=== PATIENT | female | born 1950 | race Caucasian/White ===

== ENCOUNTER 2020-05-01 10:05 | Outpatient (REF) | payer MEDICARE, BC, OTHER, SELFPAY ==
[2020-05-01 11:13] LABS: MANUAL DIFF FLAG NO
[2020-05-01 11:25] LABS: Basophils Absolute Auto 0.1 X10*3/uL (0.0-0.2); Basophils Percent Auto 1.2 % (0-2); Eosinophils Absolute Auto 0.2 X10*3/uL (0.0-0.4); Eosinophils Percent Auto 4.7 % (0-4); Hematocrit 42.5 % (37-47); Hemoglobin 13.8 g/dl (12.0-16.0); Imm Gran Abs Auto 0.01 X10*3/uL (0.00-0.03); Imm Gran Pct Auto 0.2 % (0.0-0.4); Lymphocytes Absolute Auto 1.3 X10*3/uL (1.2-4.9); Lymphocytes Percent Auto 29.5 % (20-40); Mean Corpuscular HGB Conc 32.5 g/dl (31.0-35.0); Mean Corpuscular Volume 92.4 fL (80-98); Mean Platelet Volume 10.8 fL (9.4-12.3); Monocytes Absolute Auto 0.3 X10*3/uL (0.1-1.2); Monocytes Percent Auto 7.7 % (2-11); Neutrophils Absolute Auto 2.4 X10*3/uL (2.0-8.3); Neutrophils Percent Auto 56.7 % (45-73); Platelet Count 274 X10*3/uL (160-400); Red Cell Distribution Width 13.1 % (11.0-16.0); White Blood Count 4.3 X10*3/uL (4.8-10.8)
[2020-05-01 11:35] LABS: Glucose Urine UA NEG (NEG); Leukocyte Esterase Urine NEG (NEG); Nitrite Urine NEG (NEG); Urine Blood TRACE (NEG); Urine Ketones 5 MG/DL (NEG); Urine Protein NEG (NEG-TRACE)
[2020-05-01 11:47] LABS: Appearance Urine HAZY; Color Urine YELLOW
[2020-05-01 11:59] LABS: Bacteria Urine TRACE /LPF; RBC Urine 0-2 /HPF (0); Squamous Epithelial Cell Urine 1+ /LPF; WBC Urine 0 /HPF (0-4)
[2020-05-01 12:16] LABS: Thyroid Stimulating Hormone 2.43 uIU/mL (0.32-4.0); Vitamin D 25-OH Total 38.2 ng/mL (>30)
[2020-05-01 12:20] LABS: Alanine Aminotransferase 17 U/L (0-31); Albumin Level 4.4 g/dL (3.5-5.0); Alkaline Phosphatase 72 U/L (39-117); Anion Gap 15 (12-20); Aspartate Amino Transferase 20 U/L (5-31); Bilirubin Total 0.8 mg/dL (0.0-1.0); Blood Urea Nitrogen 15 mg/dL (9-16); Calcium 9.3 mg/dL (8.4-10.2); Carbon Dioxide 25 mmol/L (22-29); Chloride 105 mmol/L (96-108); Cholesterol 256 mg/dL; Estimated Glomerular Filt Rate > 60; Glucose Random 96 mg/dL (60-115); HDL Cholesterol 80 mg/dL; LDL Cholesterol Calculated 163 mg/dl; Potassium 4.2 mmol/L (3.3-5.1); Sodium 141 mmol/L (135-145); Total Protein 7.2 g/dL (6.5-8.0); Triglycerides 68 mg/dL
[2020-05-01 12:26] LABS: Folate 19.9 ng/mL (> or = 4.0); Vitamin B12 1000 pg/mL (200-900)
== END 2020-05-01 10:06 | disposition home or self-care (01) ==
LOC: HO.HMGCLDS 10:05
PROVIDERS: PCP Internal Medicine; Visit Provider Internal Medicine
DX: E78.00 Pure hypercholesterolemia, unspecified (principal); E03.9 Hypothyroidism, unspecified; M17.0 Bilateral primary osteoarthritis of knee
CPT/HCPCS: 36415; 80053; 80061; 81001; 82306; 82607; 82746; 84439; 84443; 85025

== ENCOUNTER 2020-09-07 12:15 | Outpatient (REF) | payer MEDICARE, BC, OTHER, SELFPAY ==
[2020-09-07 14:00] LABS: MANUAL DIFF FLAG NO
[2020-09-07 14:07] LABS: Basophils Percent Auto 0.9 % (0-2); Eosinophils Absolute Auto 0.2 X10*3/uL (0.0-0.4); Eosinophils Percent Auto 3.8 % (0-4); Glucose Urine UA NEG (NEG); Hemoglobin 13.5 g/dl (12.0-16.0); Imm Gran Abs Auto 0.02 X10*3/uL (0.00-0.03); Imm Gran Pct Auto 0.4 % (0.0-0.4); Leukocyte Esterase Urine NEG (NEG); Lymphocytes Percent Auto 22.2 % (20-40); Mean Corpuscular HGB Conc 32.9 g/dl (31.0-35.0); Mean Corpuscular Hemoglobin 30.2 pg (27.0-33.0); Mean Corpuscular Volume 91.7 fL (80-98); Mean Platelet Volume 10.6 fL (9.4-12.3); Monocytes Absolute Auto 0.3 X10*3/uL (0.1-1.2); Monocytes Percent Auto 7.4 % (2-11); Neutrophils Absolute Auto 2.9 X10*3/uL (2.0-8.3); Neutrophils Percent Auto 65.3 % (45-73); Nitrite Urine NEG (NEG); PH 5.5 (5.0-8.0); Platelet Count 276 X10*3/uL (160-400); Red Blood Count 4.47 X10*6/uL (4.20-5.50); Red Cell Distribution Width 13.3 % (11.0-16.0); Specific Gravity - Urine >= 1.030 (1.005-1.025); Urine Blood NEG (NEG); Urine Ketones NEG (NEG); Urine Protein NEG (NEG-TRACE); White Blood Count 4.5 X10*3/uL (4.8-10.8)
[2020-09-07 14:11] LABS: Appearance Urine CLOUDY; Color Urine YELLOW
[2020-09-07 14:22] LABS: Mucus Urine 3+ /LPF; RBC Urine 0 /HPF (0); Squamous Epithelial Cell Urine 1+ /LPF; WBC Urine 0 /HPF (0-4)
[2020-09-07 14:25] LABS: Amorphous Sediment Urine 2+ /LPF
[2020-09-07 14:31] LABS: Alanine Aminotransferase 16 U/L (0-31); Albumin Level 4.3 g/dL (3.5-5.0); Alkaline Phosphatase 72 U/L (39-117); Anion Gap 11 (12-20); Aspartate Amino Transferase 20 U/L (5-31); Bilirubin Total 0.7 mg/dL (0.0-1.0); Blood Urea Nitrogen 17 mg/dL (9-16); Calcium 9.7 mg/dL (8.4-10.2); Carbon Dioxide 26 mmol/L (22-29); Chloride 108 mmol/L (96-108); Cholesterol 209 mg/dL; Estimated Glomerular Filt Rate > 60; Glucose Random 90 mg/dL (60-115); HDL Cholesterol 75 mg/dL; LDL Cholesterol Calculated 121 mg/dl; Potassium 4.4 mmol/L (3.3-5.1); Sodium 141 mmol/L (135-145); Triglycerides 67 mg/dL
[2020-09-07 14:33] LABS: B Type Natriuretic Peptide 55 pg/mL (<100)
[2020-09-07 14:53] LABS: Free T4 (Free Thyroxine) 1.38 ng/dL (0.71-1.85); Thyroid Stimulating Hormone 0.57 uIU/mL (0.32-4.0); Vitamin D 25-OH Total 33.1 ng/mL (>30)
[2020-09-07 16:16] LABS: Folate 18.6 ng/mL (> or = 4.0); Vitamin B12 640 pg/mL (200-900)
[2020-09-08 08:52] LABS: Lyme Abs Screen <0.90 index
== END 2020-09-07 12:16 | disposition home or self-care (01) ==
LOC: HO.HMGCLDS 12:15
PROVIDERS: PCP Internal Medicine; Visit Provider Internal Medicine
DX: E78.00 Pure hypercholesterolemia, unspecified (principal); T14.8XXA Other injury of unspecified body region, initial encounter; W57.XXXA Bitten or stung by nonvenomous insect and other nonvenomous arthropods, initial encounter
CPT/HCPCS: 36415; 80053; 80061; 81001; 82306; 82607; 82746; 83880; 84439; 84443; 85025; 86617; 86618

== ENCOUNTER 2021-07-17 16:44 | Outpatient (REF) | payer MEDICARE, BC, OTHER, SELFPAY ==
[2021-07-17 17:27] LABS: Appearance Urine CLEAR; Color Urine YELLOW; Glucose Urine UA NEG (NEG); Leukocyte Esterase Urine NEG (NEG); Nitrite Urine NEG (NEG); PH 5.5 (5.0-8.0); Specific Gravity - Urine >= 1.030 (1.005-1.025); Urine Blood TRACE (NEG); Urine Ketones NEG (NEG); Urine Protein NEG (NEG-TRACE)
[2021-07-17 17:37] LABS: Estimated Average Glucose 100 mg/dL; Hemoglobin A1c % 5.1 %
[2021-07-17 17:44] LABS: Alanine Aminotransferase 24 U/L (0-31); Albumin Level 4.3 g/dL (3.5-5.0); Alkaline Phosphatase 71 U/L (39-117); Anion Gap 11 (12-20); Aspartate Amino Transferase 22 U/L (5-31); Bilirubin Total 0.8 mg/dL (0.0-1.0); Blood Urea Nitrogen 19 mg/dL (9-16); Calcium 9.5 mg/dL (8.4-10.2); Carbon Dioxide 28 mmol/L (22-29); Chloride 105 mmol/L (96-108); Cholesterol 206 mg/dL; Estimated Glomerular Filt Rate > 60; Glucose Random 94 mg/dL (60-115); HDL Cholesterol 84 mg/dL; LDL Cholesterol Calculated 110 mg/dl; Potassium 4.3 mmol/L (3.3-5.1); Sodium 140 mmol/L (135-145); Total Protein 7.1 g/dL (6.5-8.0); Triglycerides 63 mg/dL
[2021-07-17 17:45] LABS: Bacteria Urine 1+ /LPF; Mucus Urine 1+ /LPF; RBC Urine 0-2 /HPF (0); Squamous Epithelial Cell Urine 2+ /LPF
[2021-07-17 18:04] LABS: Free T4 (Free Thyroxine) 1.53 ng/dL (0.71-1.85); Thyroid Stimulating Hormone 1.77 uIU/mL (0.32-4.0)
== END 2021-07-17 16:45 | disposition home or self-care (01) ==
LOC: HO.LAB 16:44
PROVIDERS: PCP Internal Medicine; Visit Provider Internal Medicine
DX: E03.9 Hypothyroidism, unspecified (principal); E78.00 Pure hypercholesterolemia, unspecified; M17.0 Bilateral primary osteoarthritis of knee
CPT/HCPCS: 36415; 80053; 80061; 81001; 83036; 84439; 84443

== ENCOUNTER 2021-07-18 15:28 | Outpatient (REF) | payer MEDICARE, BC, OTHER, SELFPAY ==
--- NOTE | ~2021-07-18 | XR_ITS ---
EXAMINATION: XR KNEE, RIGHT CLINICAL INFORMATION: Right knee pain COMPARISON: None TECHNIQUE: Two views of the right knee. FINDINGS: No fracture or subluxation. Moderate to severe lateral compartment joint space narrowing. Mild patellofemoral compartment narrowing. Tricompartmental marginal osteophytes. No significant joint effusion. Diffuse soft tissue swelling. XR/XR knee RT 2V IMPRESSION: Moderate tricompartmental degenerative changes.
--- NOTE | ~2021-07-18 | XR_ITS ---
EXAMINATION: XR SHOULDER, RIGHT CLINICAL INFORMATION: Pain. Fall. COMPARISON: None TECHNIQUE: Three views of the right shoulder. FINDINGS: No acute fracture or dislocation. The glenohumeral joint is aligned. Severe degenerative change with joint space narrowing. There is flattening of the humeral head and glenoid with [id number] appearance. Subchondral sclerosis present. The acromioclavicular joint is intact. The visualized lung is clear. The visualized ribs are intact. XR/XR shoulder RT min 2V IMPRESSION: No acute fracture. Severe degenerative changes of the glenohumeral joint.
== END 2021-07-18 15:29 | disposition home or self-care (01) ==
LOC: HO.HMGCX 15:28
PROVIDERS: PCP Internal Medicine; Visit Provider Internal Medicine
DX: M25.561 Pain in right knee (principal); M25.511 Pain in right shoulder
CPT/HCPCS: 73030; 73560

== ENCOUNTER 2022-01-02 17:03 | Outpatient (REF) | payer MEDICARE, BC, OTHER, SELFPAY ==
[2022-01-02 17:24] LABS: MANUAL DIFF FLAG NO
[2022-01-02 17:52] LABS: Appearance Urine Clear; Color Urine Yellow; Glucose Urine UA Negative (Negative); Leukocyte Esterase Urine Trace (Negative); Nitrite Urine Negative (Negative); PH 7.5 (5.0-9.0); Specific Gravity - Urine 1.015 (1.005-1.025); UMIC TRIGGER UA YES; Urine Blood Negative (Negative); Urine Ketones Negative (Negative); Urine Protein Negative (Neg-Trace)
[2022-01-02 17:55] LABS: Bacteria Urine Trace (None Seen); Hyaline Casts Urine 0-2 /LPF (0-2); WBC Urine 0-5 /HPF (0-5)
[2022-01-02 17:56] LABS: Basophils Percent Auto 1.2 % (0-2); Eosinophils Absolute Auto 0.2 X10*3/uL (0.0-0.4); Eosinophils Percent Auto 4.8 % (0-4); Hematocrit 41.7 % (37.0-47.0); Hemoglobin 13.9 g/dl (12.0-16.0); Imm Gran Abs Auto 0.01 X10*3/uL (0.00-0.03); Imm Gran Pct Auto 0.3 % (0.0-0.4); Lymphocytes Absolute Auto 1.1 X10*3/uL (1.2-4.9); Lymphocytes Percent Auto 33.4 % (20-40); Mean Corpuscular HGB Conc 33.3 g/dl (31.0-35.0); Mean Corpuscular Hemoglobin 30.3 pg (27.0-33.0); Monocytes Absolute Auto 0.2 X10*3/uL (0.1-1.2); Monocytes Percent Auto 7.2 % (2-11); Neutrophils Absolute Auto 1.8 x10*3/uL (2.0-8.3); Neutrophils Percent Auto 53.1 % (45-73); Platelet Count 297 X10*3/uL (160-400); Red Blood Count 4.58 X10*6/uL (4.20-5.50); White Blood Count 3.3 X10*3/uL (4.8-10.8)
[2022-01-02 18:34] LABS: Alanine Aminotransferase 30 U/L (0-31); Albumin Level 4.5 g/dL (3.5-5.0); Alkaline Phosphatase 86 U/L (39-117); Anion Gap 15 (12-20); Aspartate Amino Transferase 26 U/L (5-31); Bilirubin Total 0.8 mg/dL (0.0-1.0); Blood Urea Nitrogen 16 mg/dL (9-16); Calcium 9.6 mg/dL (8.4-10.2); Carbon Dioxide 27 mmol/L (22-29); Chloride 105 mmol/L (96-108); Cholesterol 225 mg/dL; Estimated Glomerular Filt Rate > 60; Glucose Random 107 mg/dL (60-115); HDL Cholesterol 82 mg/dL; LDL Cholesterol Calculated 129 mg/dl; Potassium 4.5 mmol/L (3.3-5.1); Sodium 142 mmol/L (135-145); Total Protein 7.3 g/dL (6.5-8.0); Triglycerides 73 mg/dL
[2022-01-02 18:53] LABS: Free T4 (Free Thyroxine) 1.32 ng/dL (0.71-1.85); Thyroid Stimulating Hormone 3.14 uIU/mL (0.32-4.0); Vitamin D 25-OH Total 44.3 ng/mL (>30)
[2022-01-02 19:02] LABS: Folate 19.4 ng/mL (> or = 4.0); Vitamin B12 440 pg/mL (200-900)
[2022-01-03 08:01] LABS: Estimated Average Glucose 97 mg/dL
== END 2022-01-02 17:04 | disposition home or self-care (01) ==
LOC: HO.LAB 17:03
PROVIDERS: PCP Internal Medicine; Visit Provider Internal Medicine
DX: E03.9 Hypothyroidism, unspecified (principal); E66.9 Obesity, unspecified; E78.00 Pure hypercholesterolemia, unspecified
CPT/HCPCS: 36415; 80053; 80061; 81001; 82306; 82607; 82746; 83036; 84439; 84443; 85025

== ENCOUNTER 2022-02-11 17:00 | Outpatient (RCR) | payer MEDICARE, BC, OTHER, SELFPAY | END 2022-04-15 15:42 | disposition home or self-care (01) | LOC: HO.PTCHIC 17:00 | PROVIDERS: PCP Internal Medicine; Visit Provider Orthopaedic Surgery | DX: M17.0 Bilateral primary osteoarthritis of knee (principal) | CPT/HCPCS: 97110; 97116; 97161 ==

== ENCOUNTER 2022-02-27 15:25 | Outpatient (REF) | payer MEDICARE, BC, OTHER, SELFPAY ==
--- NOTE | ~2022-02-27 | US_ITS ---
EXAMINATION: Noninvasive assessment of the arteries of both lower extremities to include a limited PVR exam (1-2 levels) and ANKLE BRACHIAL INDICES (ABIs). CLINICAL INFORMATION: Peripheral vascular disease TECHNIQUE: The ankle/brachial indices of the distal posterior tibial and the dorsalis pedis arteries were obtained of the lower extremity arterial system bilaterally; along with pressures and pulse volume recordings at the ankle level. The study was performed at rest. COMPARISON: None FINDINGS AT REST: EVANGELISTA Reference: - >1.4 = calcified vessels - 0.9 - 1.4 = normal - no significant arterial disease - 0.7 - 0.89 = mild peripheral arterial disease - 0.51 - 0.69 = moderate peripheral arterial disease - ? 0.50 = severe peripheral arterial disease - < .30 = critical arterial disease RIGHT LEG 1. THE RIGHT ANKLE-BRACHIAL INDEX IS:?0.91 2. SEGMENTAL PRESSURES (mmHg): Ankle: DP 137 3. PVR WAVEFORMS: Ankle: Abnormal LEFT LE. THE LEFT ANKLE-BRACHIAL INDEX IS:0.91 2. SEGMENTAL PRESSURES (mmHg): Ankle: DP 138, PT 81 3. PVR WAVEFORMS: Ankle: Abnormal US/US EVANGELISTA complete IMPRESSION: RIGHT LEG: Mild peripheral arterial disease at rest. LEFT LEG: Mild peripheral arterial disease at rest.
== END 2022-02-27 15:26 | disposition home or self-care (01) ==
LOC: HO.US 15:25
PROVIDERS: Visit Provider Internal Medicine
DX: I73.9 Peripheral vascular disease, unspecified (principal)
CPT/HCPCS: 93923

== ENCOUNTER 2022-08-25 16:48 | Outpatient (REF) | payer MEDICARE, BC, OTHER, SELFPAY ==
[2022-08-25 17:14] LABS: MANUAL DIFF FLAG NO
[2022-08-25 17:41] LABS: Basophils Percent Auto 1.2 % (0-2); Eosinophils Absolute Auto 0.2 X10*3/uL (0.0-0.4); Eosinophils Percent Auto 5.3 % (0-4); Hematocrit 41.8 % (37.0-47.0); Hemoglobin 13.9 g/dl (12.0-16.0); Imm Gran Abs Auto 0.01 X10*3/uL (0.00-0.03); Imm Gran Pct Auto 0.3 % (0.0-0.4); Lymphocytes Absolute Auto 1.1 X10*3/uL (1.2-4.9); Mean Corpuscular HGB Conc 33.3 g/dl (31.0-35.0); Mean Corpuscular Hemoglobin 30.5 pg (27.0-33.0); Mean Corpuscular Volume 91.7 fL (80.0-98.0); Monocytes Absolute Auto 0.3 X10*3/uL (0.1-1.2); Monocytes Percent Auto 8.1 % (2-11); Neutrophils Absolute Auto 1.6 x10*3/uL (2.0-8.3); Neutrophils Percent Auto 51.1 % (45-73); Platelet Count 261 X10*3/uL (160-400); Red Blood Count 4.56 X10*6/uL (4.20-5.50); Red Cell Distribution Width 13.5 % (11.0-16.0); White Blood Count 3.2 X10*3/uL (4.8-10.8)
[2022-08-25 18:11] LABS: Alanine Aminotransferase 27 U/L (0-31); Albumin Level 4.3 g/dL (3.5-5.0); Alkaline Phosphatase 82 U/L (39-117); Anion Gap 15 (12-20); Aspartate Amino Transferase 25 U/L (5-31); Bilirubin Total 0.8 mg/dL (0.0-1.0); Blood Urea Nitrogen 14 mg/dL (9-16); Calcium 9.7 mg/dL (8.4-10.2); Carbon Dioxide 26 mmol/L (22-29); Chloride 108 mmol/L (96-108); Cholesterol 251 mg/dL; Estimated Glomerular Filt Rate > 60; Glucose Random 94 mg/dL (60-115); HDL Cholesterol 73 mg/dL; LDL Cholesterol Calculated 163 mg/dl; Potassium 4.5 mmol/L (3.3-5.1); Sodium 144 mmol/L (135-145); Total Protein 6.9 g/dL (6.5-8.0); Triglycerides 75 mg/dL
[2022-08-25 18:27] LABS: Free T4 (Free Thyroxine) 1.19 ng/dL (0.71-1.85); Thyroid Stimulating Hormone 2.72 uIU/mL (0.32-4.0)
[2022-08-26 05:11] LABS: Estimated Average Glucose 91 mg/dL; Hemoglobin A1c % 4.8 %
== END 2022-08-25 16:49 | disposition home or self-care (01) ==
LOC: HO.LAB 16:48
PROVIDERS: Visit Provider Internal Medicine
DX: E78.00 Pure hypercholesterolemia, unspecified (principal); E03.9 Hypothyroidism, unspecified; R73.01 Impaired fasting glucose
CPT/HCPCS: 36415; 80053; 80061; 83036; 84439; 84443; 85025

== ENCOUNTER 2022-10-09 14:10 | Outpatient (AMB) | payer MEDICARE, BC, OTHER, SELFPAY ==
--- NOTE | 2022-10-09 11:14 | A.OFFVIS_ITS ---
Intake Intake Visit Reasons: MANAGER ZONE-urge incontinence Intake Note: New Patient presents for urge incontinence Urology Medications: solifenacin Blood Thinner: aspirin PVR: 67 ml Ship Pilot Dispatcher Required: No Accompanied by: Self / Same As Patient Allergies No Known Allergies Allergy (Verified 10/09/22 14:33) HPI HPI Comments History of Present Illness Details 10/19/2022-- Della is a 72-year-old female who presents today to the office as a new patient evaluation for urinary incontinence. Comorbidities: obesity, osteoarthritis.? She states that she needs to use a cane or walker to get around due to her arthritis. She states that she has been on VESIcare 5mg for few years, states that was initially showed mild improvement, had less urgency. Her urinary symptoms have been worsening at this time. She describes being soaked due to urinary leakage, and has to change multiple pads. She denies any prior urinary tract infections. She had 5 vaginal deliveries.? She had total hysterectomy in the past.? Evaluation today UA: leucocytes: negative; blood: negative. Plan:? Prescribed Gemtesa 75mg daily, and advised the patient to discontinue taking VESIcare while taking Gemtesa. Ordered renal us today in the office. Follow up to consider Cystoscopy at that time. [facility] Medical History Eczema Hematuria Hypercholesterolemia Hypothyroid Obesity (BMI 30-39.9) Osteoarthritis, knee Right shoulder pain Thyroid nodule Tick bite Urinary incontinence Surgical History History of thyroid nodule History of tonsillectomy and adenoidectomy S/P PARTH-BSO (total abdominal hysterectomy and bilateral salpingo-oophorectomy) Family History Father CAD (coronary artery disease) Lung cancer CVD (cardiovascular disease) Mother Pancreatic cancer Colon cancer Maternal Grandmother Leukemia Maternal Grandfather Pancreatic cancer Paternal Grandfather Throat cancer Social History Housing: House Alcohol intake: never Patient Tobacco Use Status: Never used Tobacco e-Cigarette/Vaping Use: Never Used Second Hand Smoke Exposure: No Current occupational status: retired Cognitive needs: No Hearing needs: No Vision needs: No Review of Systems Const All systems reviewed & are unremarkable except as noted in HPI and below Reports no additional complaints Eyes Reports no additional complaints ENT Reports no additional complaints Card Denies dyspnea Resp Denies cough and Denies dyspnea GI Reports no additional complaints Reports no additional complaints Musc Reports no additional complaints Skin/Breast Denies rash and Denies unusual bruising Neuro Reports no additional complaints Psych Reports no additional complaints Endo Reports no additional complaints Landon/Lymph Reports no additional complaints Aller/Immun Reports no additional complaints Physical Exam Const General: cooperative, healthy appearing and no acute distress Orientation/consciousness: patient oriented x3 HEENT Head: Yes normal to inspection, Yes normocephalic and Yes atraumatic Eyes Conjunctivae: conjunctivae normal Neck Neck: Yes normal visual inspection and Yes trachea midline Chest Chest palpation & inspection: normal inspection of the chest Resp Effort & Inspection: normal respiratory effort Cardio Rate: regular rate GI Inspection: Yes normal to inspection Palpation (GI): Soft to palpation Skin General skin exam: no rashes or lesions noted Neuro General: patient oriented x3 Extrem General: No edema Psych Appearance: grossly normal Office Procedures Post Void Residual Post Residual Void Post Void Residual (PVR): 67 [id number] Void Residual by ultrasound Results AMB Urinalysis, Automated UA Leukoctes 0 Iga/uL Last Edit by MICHAEL Saldaña on 10/09/22 14:40 UA Nitrite Negative Last Edit by Keri Kauffman Elena on 10/09/22 14:40 UA Urobilinogen 0.2 mg/dL Last Edit by Keri Kauffman Elena on 10/09/22 14:4 0 UA Protein 0 mg/dL Last Edit by Keri Kauffman [facility] on 10/09/22 14:40 UA pH 6.0 Last Edit by MICHAEL Saldaña on 10/09/22 14:40 UA Blood 0 Rey/uL Last Edit by Keri Kauffman Elena on 10/09/22 14:40 UA Specific [place] 1.015 Last Edit by MICHAEL Saldaña on 10/09/22 14: 40 UA Ketone Negative Last Edit by Keri Kauffman Elena on 10/09/22 14:40 UA Bilirubin 0 mg/dL Last Edit by MICHAEL Saldaña on 10/09/22 14:40 UA Glucose 0 mg/dL Last Edit by MICHEAL Saldaña on 10/09/22 14:40 Results Reviewed Results Reviewed: Laboratory Last Values Urine pH (Auto) 6.0 10/09/22 14:34 Specific [place] (Auto) 1.015 10/09/22 14:34 Urine Protein (Auto) 0 mg/dL 10/09/22 14:34 Glucose (UA)(Auto) 0 mg/dL 10/09/22 14:34 Urine Ketones (Auto) Negative 10/09/22 14:34 Urine Blood (Auto) 0 Rey/uL 10/09/22 14:34 Urine Nitrite (Auto) Negative 10/09/22 14:34 Urine Bilirubin (Auto) 0 mg/dL 10/09/22 14:34 Urine Urobilinogen (Auto) 0.2 mg/dL 10/09/22 14:34 Leukocyte Esterase (Auto) 0 Gia/uL 10/09/22 14:34 Assessment & Plan Assessment & Plan (1) OAB (overactive bladder): Code(s): N32.81 - Overactive bladder (2) Urge incontinence: Code(s): N39.41 - Urge incontinence Plan Prescribed Gemtesa 75mg daily, and advised the patient to discontinue taking VESIcare while taking Gemtesa. Ordered renal us today in the office. Follow up to consider Cystoscopy at that time. Orders: Orders AMB Urinalysis Automated 10/09/22 Z13.9 - Encounter for screening, unspecified AMB Post Void Residual by ultrasound 10/09/22 N39.41 - Urge incontinence Medications: New vibegron (Gemtesa) 75 mg PO DAILY 90 tabs 2RF Patient Instructions: The patient had an opportunity to ask questions regarding treatment plan. All questions were answered. Imaging, Laboratory studies and physical exam results were discussed and reviewed in detail. No major barriers to understanding were identified. The patient expressed understanding and agreement with the above treatment plan. The patient is aware they should contact our office by phone for worsening of their current condition or the appearance of new symptoms. Compliance is encouraged with any medications and followup testing that is ordered. It is a privilege to be allowed the opportunity to participate in the urologic care of your patient. If you have any questions or concerns regarding treatment for the above conditions please do not hesitate to contact me. The office telephone contact is [phone]. This note is constructed in part using voice recognition software. While every effort has been made to ensure accuracy advertising account manager errors may have been included. Yours sincerely, Son Mayer MD Coding Level of Care Code New Pt Level 4 (65083) Diagnoses OAB (overactive bladder) N32.81 Urge incontinence N39.41 CPT Codes Post Residual Void - PVR CPT Code: 29297-[id number] Void Residual by ultrasound ([id number])
== END 2022-10-09 15:07 | disposition home or self-care (01) ==
PROVIDERS: PCP Internal Medicine; Visit Provider Urology
DX: N32.81 Overactive bladder (principal); N39.41 Urge incontinence
CPT/HCPCS: 99204

== ENCOUNTER → 2022-10-09 14:10 | Outpatient (BNVA) | payer MEDICARE, BC, OTHER, SELFPAY | PROVIDERS: PCP Internal Medicine; Visit Provider Urology | DX: N32.81 Overactive bladder (principal); N39.41 Urge incontinence | CPT/HCPCS: 51798; 99202 ==

== ENCOUNTER 2023-08-12 15:46 | Outpatient (REF) | payer MEDICARE, BC, SELFPAY ==
--- NOTE | ~2023-08-12 | US_ITS ---
EXAMINATION: US RETROPERITONEAL COMPLETE (RENAL) CLINICAL INFORMATION: Overactive bladder. COMPARISON: None available. TECHNIQUE: Real-time imaging of the kidneys and bladder. Technically limited study secondary to bowel gas, body habitus and limited mobility. FINDINGS: RIGHT KIDNEY: 10.0 x 4.7 x 3.6 cm (SAG x AP x TRV). No hydronephrosis. No renal calculi. Renal cortical thickness is normal. Limited visualization with particularly poor visualization of the lower pole. LEFT KIDNEY: 10.1 x 5.3 x 4.8 cm (SAG x AP x TRV). Renal cortical thickness is normal. Limited visualization. Mild left caliectasis. Echogenic focus lower pole left kidney, possibly representing a calcified vessel versus nonobstructive calculus. BLADDER: Partially distended. Bilateral ureteral jets are demonstrated. Prevoid bladder volume is 439 mL. Postvoid bladder volume is 118 mL. US/US retroperitoneal comp IMPRESSION: 1. Mild left caliectasis. Echogenic focus lower pole left kidney, possibly representing a calcified vessel versus nonobstructive calculus. 2. Postvoid bladder volume is 118 mL.
== END 2023-08-12 15:47 | disposition home or self-care (01) ==
LOC: HO.US 15:46
PROVIDERS: PCP Internal Medicine; Visit Provider Urology
DX: N32.81 Overactive bladder (principal); R35.0 Frequency of micturition
CPT/HCPCS: 76770

== ENCOUNTER 2023-08-27 16:07 | Outpatient (AMB) | payer MEDICARE, BC, SELFPAY ==
[2023-08-27 16:13] VITALS: BP 144/72; PULSE 86; O2SAT 98
--- NOTE | 2023-08-27 16:13 | MHC.PC.OV ---
Vital Signs 08/27/23 16:13 08/27/23 16:45 Height 5 ft 8 in BMI Reason not done Patient refused/unable BP 144/72 H 128/74 Blood Pressure Location Lt brachial Rt brachial Position Sitting Sitting Pulse 86 Pulse Source Pulse Oximeter Pulse Oximetry (%) 98 Oxygen Delivery Method Room Air Intake Visit Reasons: Follow up Medication F/U Lead Electrical Engineer Required: No Engineering Recruiter: Not Required per policy Accompanied by: Self / Same As Patient Allergies No Known Allergies Allergy (Verified 08/27/23 16:14) Tobacco use date assessed: 08/27/23 Fall risk assessment: No Falls in past year Last assessed Fall Risk: 08/27/23 Dental Screening Dental Screen Date: 08/27/23 Did you have a dental visit in the last 12 months?: Yes Did you have a dental problem in the last 6 months where you did not have access to dental care?: No Was dental information given to patient?: Patient has dentist HPI Follow up Medication F/U HPI Details 82-year-old obese female with impaired glucose tolerance hypothyroidism hypercholesterolemia generalized anxiety disorder last seen in 09/09/2022. Review of the notes has been sent to urology for urge incontinence on solifenacin with postvoid residual of 67 cc patient was prescribed gemtessa and advised renal ultrasound with cystoscopy. This has not been done. August blood work showing high cholesterol.. US requested- did not use asking me about the med. cough, 4 days, no fevers, no diarrhea, , congested PFSH Medical History Eczema Hematuria Hypercholesterolemia Hypothyroid Obesity (BMI 30-39.9) Osteoarthritis, knee Right shoulder pain Thyroid nodule Tick bite Urinary incontinence Surgical History History of thyroid nodule S/P PARTH-BSO (total abdominal hysterectomy and bilateral salpingo-oophorectomy) History of tonsillectomy and adenoidectomy Family History Father CAD (coronary artery disease) Lung cancer CVD (cardiovascular disease) Mother Pancreatic cancer Colon cancer Maternal Grandmother Leukemia Maternal Grandfather Pancreatic cancer Paternal Grandfather Throat cancer Social History Housing: House Alcohol intake: never Patient Tobacco Use Status: Never used Tobacco e-Cigarette/Vaping Use: Never Used Second Hand Smoke Exposure: No Current occupational status: retired Cognitive needs: Yes (cane) Hearing needs: No Vision needs: Yes (glasses) Questionnaire PHQ-9 Over the last 2 weeks, how often have you been bothered by any of the following problems? 1. Little interest or pleasure in doing things: not at all 2. Feeling down, depressed, or hopeless: not at all 3. Trouble falling or staying asleep, or sleeping too much: not at all 4. Feeling tired or having little energy: not at all 5. Poor appetite or overeating: not at all 6. Feeling bad about yourself - or that you are a failure or have let yourself or your family down: not at all 7. Trouble concentrating on things, such as reading the newspaper or watching television: not at all 8. Moving or speaking so slowly that other people could have noticed. Or the opposite - being so fidgety or restless that you have been moving around a lot more than usual: not at all 9. Thoughts that you would be better off or of hurting yourself in some way: not at all Total score: 0 Depression Screening Interpretation: Negative Depression Screening Done: Yes Source: Developed by Drs. Talat Hernandez, Marilyn Figueroa, Beto Bojorquez and colleagues, with an educational justin from [employer]. Thrive Questionnaire Date Thrive assessed: 08/27/23 I am a: Patient What is your living situation today?: I have a steady place to live Within the past 12 months, did the food you bought not last and you didn't have the money to get more?: Never true Within the past 12 months, did you worry whether your food would run out before you got money to buy more?: Never true Do you have trouble paying for medicines?: No Do you have trouble getting transportation to medical appointments?: No Do you have trouble paying your heating and electricity bill?: No Do you have trouble taking care of your child, family member or friend?: No Do you have trouble with day-to-day activities such as bathing, preparing meals, shopping, managing finances, etc.?: No Are you currently unemployed and looking for a job?: No Are you interested in more education?: No Please select the resources that you would like help with: None THRIVE Score: 0 AUDIT C Alcohol Use Questionnaire (AUDIT-C) 1. How often do you have a drink containing alcohol?: Never 2. How many drinks containing alcohol do you have on a typical day when you are drinking?: 1 or 2 3. How often do you have six or more drinks on one occasion?: Never Total Score: 0 VANNESSA-7 AMB Questionnaire VANNESSA-7 Date VANNESSA - 7 assessed: 08/27/23 Feeling nervous, anxious, or on edge: 0 = Not at all Not being able to stop or control worryin = Not at all Worrying too much about different things: 0 = Not at all Trouble relaxin = Not at all Being so restless that it is hard to sit still: 0 = Not at all Becoming easily annoyed or irritable: 0 = Not at all Feeling afraid as if something awful might happen: 0 = Not at all Total VANNESSA-7 score (0-4 normal; 5-9 mild; 10-14 moderate; 15-21 severe): 0 Source: Developed by Drs. Talat Hernandez, Marilyn Figueroa, Beto Bojorquez and colleagues, with an educational justin from [employer]. Physical exam (Primary Care) Vital Signs: Last Vital Signs Pulse 86 08/27/23 16:13 BP 128/74 08/27/23 16:45 Pulse Ox 98 08/27/23 16:13 Oxygen Delivery Method Room Air 08/27/23 16:13 Tobacco/Smoking Status: Tobacco use Status Tobacco use date assessed 08/27/23 08/27/23 16:15 Patient Tobacco Use Status Never used Tobacco 08/27/23 16:15 e-Cigarette/Vaping Use Never Used 08/27/23 16:15 PHQ-9: PHQ-9 Score PHQ-9: Total score 0 08/27/23 16:44 Depression Screening Interpretation: Negative Thrive Assessment: Date of Thrive Assessment Date Thrive assessed 08/27/23 08/27/23 16:15 Const General: alert; No acute distress Eyes Conjunctivae: conjunctivae normal Resp Other: Rhonchi bilaterally slight wheezing Cardio Rate: regular rate Rhythm: regular rhythm GI Inspection: Yes normal to inspection Extrem General: Yes normal to inspection and No edema Assessment and Plan Assessment & Plan (1) OAB (overactive bladder): Code(s): N32.81 - Overactive bladder Plan: Patient has been seen by Urology last year and has been requested to have an ultrasound done and possible cystoscopy. Ultrasound recently done results pending. Patient has been advised to start ongemtessa (2) Impaired fasting blood sugar: Code(s): R73.01 - Impaired fasting glucose Plan: Decrease the amount of carbohydrate intake, pasta, bread, rice and potatoes are all sugar and that is aside from all the sweet stuff, remember that fruits are good but they are Sweet also. 09/09/2022 last blood work (3) Hypercholesterolemia: Code(s): E78.00 - Pure hypercholesterolemia, unspecified Plan: Avoid fried foods, chicken skin, eggs, butter margarine, pastries and meat. Be it pork or beef they have a lot of cholesterol LDL goal of less than 130 and triglyceride of less than 150 on simvastatin 10 mg once a day question of holding the medication as the numbers went up (4) Obesity (BMI 30-39.9): Code(s): E66.9 - Obesity, unspecified Plan: Diet and exercise (5) Hypothyroid: Comment: Thyroidectomy last just general none cancer Code(s): E03.9 - Hypothyroidism, unspecified Qualifiers: Hypothyroidism type: acquired Qualified Code(s): E03.9 - Hypothyroidism, unspecified Plan: Continue with thyroid medication will need testing (6) Generalized anxiety disorder: Code(s): F41.1 - Generalized anxiety disorder Plan: Stable (7) Acute bronchitis: Code(s): J20.9 - Acute bronchitis, unspecified Plan: Advised to increase oral fluids, test for COVID requested, Mucinex for productive cough, Delsym for dry cough. Antibiotic prescription sent. Orders: Orders Comprehensive Met. Panel Today E03.9 - Hypothyroidism, unspecified Vitamin B12 and Folate Today E03.9 - Hypothyroidism, unspecified Hemoglobin A1c Today E03.9 - Hypothyroidism, unspecified Free T4 (Free Thyroxine) Today E03.9 - Hypothyroidism, unspecified Complete Blood Count Auto Diff Today E03.9 - Hypothyroidism, unspecified Lipid Panel Today E03.9 - Hypothyroidism, unspecified, E78.00 - Pure hypercholesterolemia, unspecified Thyroid Stimulating Hormone Today E03.9 - Hypothyroidism, unspecified SARS-CoV2/FLU/RSV Today J20.9 - Acute bronchitis, unspecified Medications: New azithromycin (Zithromax) For 250 mg dose pack: take 500 mg today (day 1), then 250 mg for 4 days (days 2-5) PO 6 tabs 0RF J20.9 - Acute bronchitis, unspecified Refilled tramadol 50 mg PO Q6H 30 days PRN 30 tabs 0RF pain M17.0 - Bilateral primary osteoarthritis of knee vibegron (Gemtesa) 75 mg PO DAILY 90 tabs 2RF tramadol 50 mg PO Q6H 30 days PRN 90 tabs 0RF pain M17.0 - Bilateral primary osteoarthritis of knee Coding Level of Care Code Est Pt Level 4 (34895) Complex EM visit Add On G2211 Diagnoses OAB (overactive bladder) N32.81 Impaired fasting blood sugar R73.01 Hypercholesterolemia E78.00 Obesity (BMI 30-39.9) E66.9 Acquired hypothyroidism E03.9 Hypothyroidism type: acquired Generalized anxiety disorder F41.1 Acute bronchitis J20.9
[2023-08-27 16:45] VITALS: BP 128/74
== END 2023-08-27 17:12 | disposition home or self-care (01) ==
PROVIDERS: PCP Internal Medicine; Visit Provider Internal Medicine
DX: N32.81 Overactive bladder (principal); R73.01 Impaired fasting glucose; E78.00 Pure hypercholesterolemia, unspecified; E03.9 Hypothyroidism, unspecified; F41.1 Generalized anxiety disorder; J20.9 Acute bronchitis, unspecified
CPT/HCPCS: 99214; G2211

== ENCOUNTER 2023-10-01 10:05 | Outpatient (AMB) | payer MEDICARE, BC, SELFPAY ==
--- NOTE | 2023-10-01 09:56 | A.OFFVIS_ITS ---
Intake Visit Reasons: Follow up/Imaging Intake Note: New Patient presents for F/U IMAGING Urology Medications: solifenacin Blood Thinner: aspirin Summer Internship Required: No Accompanied by: Self / Same As Patient Allergies No Known Allergies Allergy (Verified 10/01/23 09:57) Medication List - Last Reconciled 10/01/23 by Son Mayer MD aspirin (Adult Low Dose Aspirin) 81 mg PO DAILY azithromycin (Zithromax) For 250 mg dose pack: take 500 mg today (day 1), then 250 mg for 4 days (days 2-5) PO calcium carbonate 500 mg PO DAILY cholecalciferol (vitamin D3) 50 mcg PO DAILY cinnamon bark (Cinnamon) 500 mg PO DAILY coenzyme Q10 (Co Q-10) 50 mg PO DAILY cranberry 400 mg PO DAILY yumiko (Zingiber officinalis) 500 mg PO DAILY glucosamine sulfate (Glucosamine) 500 mg PO DAILY lactobacillus combination no.8 (Adult Probiotic) 3,000 mmu cells PO DAILY multivitamin 1 tab PO DAILY omega-3 fatty acids 1,000 mg PO DAILY plant stanol bernardino (Cholest Off) mg PO simvastatin 10 mg PO DAILY solifenacin (Vesicare) 10 mg PO DAILY Synthroid (levothyroxine) 137 mcg PO QAM NS tramadol 50 mg PO Q6H PRN 30 days triamcinolone acetonide 0.5% 1 appl topical BID 14 days turmeric root extract 500 mg PO DAILY vitamin B complex 1 tab PO DAILY walker As directed HPI Comments Details: 10/01/2023--Della is followed due to urinary incontinence. Comorbidity osteoarthritis, the patient states she has a hard time getting around due to the arthritis. She was prescribed Gemtesa to replace VESIcare 5 mg however she read the side effects for Gemtesa and did not use it. She is continued to take the VESIcare 5 mg which was prescribed by her PCP. She is continuing to have leakage. She admits to drinking 8-9 cups of coffee daily. I have discussed cutting back to 2 cups of coffee. I have discussed behavioral modification including Kegel exercises and timed voiding. I will increase the VESIcare to 10 mg. I have reviewed renal ultrasound 08/12/23, Left kidney there was a renal calcification unclear if it is vascular or a renal stone, will re-evaluate kidneys with CT scan in 6 months. 10/19/2022-- Della is a 72-year-old female who presents today to the office as a new patient evaluation for urinary incontinence. Comorbidities: obesity, osteoarthritis.?She states that she needs to use a cane or walker to get around due to her arthritis. She states that she has been on VESIcare 5mg for few years, states that was initially showed mild improvement, had less urgency. Her urinary symptoms have been worsening at this time. She describes being soaked due to urinary leakage, and has to change multiple pads. She denies any prior urinary tract infections. She had 5 vaginal deliveries.?She had total hysterectomy in the past.?Evaluation today UA: leucocytes: negative; blood: negative. Prescribed Gemtesa 75mg daily, and advised the patient to discontinue taking VESIcare while taking Gemtesa. Renal US. [facility] Medical History Hematuria Right shoulder pain Eczema Tick bite Osteoarthritis, knee Urinary incontinence Hypercholesterolemia Obesity (BMI 30-39.9) Hypothyroid Thyroid nodule Surgical History History of thyroid nodule S/P PARTH-BSO (total abdominal hysterectomy and bilateral salpingo-oophorectomy) History of tonsillectomy and adenoidectomy Family History Father CAD (coronary artery disease) Lung cancer CVD (cardiovascular disease) Mother Pancreatic cancer Colon cancer Maternal Grandmother Leukemia Maternal Grandfather Pancreatic cancer Paternal Grandfather Throat cancer Social History Housing: House Alcohol intake: never Patient Tobacco Use Status: Never used Tobacco e-Cigarette/Vaping Use: Never Used Second Hand Smoke Exposure: No Current occupational status: retired Cognitive needs: Yes (cane) Hearing needs: No Vision needs: Yes (glasses) Review of Systems Const All systems reviewed & are unremarkable except as noted in HPI and below Reports no additional complaints Eyes Reports no additional complaints ENT Reports no additional complaints Card Reports no additional complaints Resp Reports no additional complaints GI Reports no additional complaints Reports as per HPI Musc Reports no additional complaints Skin/Breast Reports system reviewed and no additional complaints, except as documented Neuro Reports no additional complaints Psych Reports no additional complaints Endo Reports no additional complaints Landon/Lymph Reports no additional complaints Aller/Immun Reports no additional complaints Telehealth Telehealth Telehealth Platform: [employer] Location of provider rendering services: practice address Location of patient: address on file Patient Identification confirmed using: Name, : Yes Telehealth method: voice only Patient verbally consented to treatment: Yes Patient verbally consented to billing insurance company: Yes Patient informed of any privacy concerns related to visit: Yes Minutes spent on Phone/Video with Pt.: 22 Results Reviewed Results Reviewed: Date of Service: 08/12/23 EXAMINATION: US RETROPERITONEAL COMPLETE (RENAL) CLINICAL INFORMATION: Overactive bladder. COMPARISON: None available. TECHNIQUE: Real-time imaging of the kidneys and bladder. Technically limited study secondary to bowel gas, body habitus and limited mobility. FINDINGS: RIGHT KIDNEY: 10.0 x 4.7 x 3.6 cm (SAG x AP x TRV). No hydronephrosis. No renal calculi. Renal cortical thickness is normal. Limited visualization with particularly poor visualization of the lower pole. LEFT KIDNEY: 10.1 x 5.3 x 4.8 cm (SAG x AP x TRV). Renal cortical thickness is normal. Limited visualization. Mild left caliectasis. 08/12/2023 BLADDER: Partially distended. Bilateral ureteral jets are demonstrated. Prevoid bladder volume is 439 mL. Postvoid bladder volume is 118 mL. IMPRESSION: 1. Mild left caliectasis. Echogenic focus lower pole left kidney, possibly representing a calcified vessel versus nonobstructive calculus. 2. Postvoid bladder volume is 118 mL. Assessment & Plan Assessment & Plan (1) OAB (overactive bladder): Code(s): N32.81 - Overactive bladder Category: Medical (2) Urge incontinence: Code(s): N39.41 - Urge incontinence Category: Medical (3) Renal calcification: Code(s): N28.89 - Other specified disorders of kidney and ureter Category: Medical (4) Functional urinary incontinence: Code(s): R39.81 - Functional urinary incontinence Category: Medical Plan Overactive bladder, functional incontinence due to arthritis. Discussed behavioral modification, cutting back to 2 cups of coffee. Kegel exercises and timed voiding. I will increase the VESIcare to 10 mg. I have reviewed renal ultrasound, Left kidney- there was a renal calcification unclear if it is vascular or a renal stone, will re-evaluate kidneys with CT scan in 6 months. Orders: Orders CT abdomen pelvis wo IV con 6 Months N28.89 - Other specified disorders of kidney and ureter Medications: New solifenacin (Vesicare) to replace vesicare 5 mg 10 mg PO DAILY 30 tabs 5RF urinary incontinence Patient Instructions: The patient had an opportunity to ask questions regarding treatment plan. The patient expressed understanding and agreement with the above treatment plan. The patient is aware they should contact our office by phone for worsening of their current condition or the appearance of new symptoms. Compliance is encouraged with any medications and followup testing that is ordered. It is a privilege to be allowed the opportunity to participate in the urologic care of your patient. If you have any questions or concerns regarding treatment for the above conditions please do not hesitate to contact me. The office telephone contact is [phone]. This note is constructed in part using voice recognition software. While every effort has been made to ensure accuracy service center representative errors may have been included. Yours sincerely, Son Mayer MD Coding Level of Care Code Tele Est Pt Level 4 (28374) Diagnoses OAB (overactive bladder) N32.81 Urge incontinence N39.41 Renal calcification N28.89 Functional urinary incontinence R39.81
== END 2023-10-01 11:04 | disposition home or self-care (01) ==
LOC: HO.HUSH 10:05
PROVIDERS: PCP Internal Medicine; Visit Provider Urology
DX: N32.81 Overactive bladder (principal); N39.41 Urge incontinence; N28.89 Other specified disorders of kidney and ureter; R39.81 Functional urinary incontinence
CPT/HCPCS: 99442

== ENCOUNTER → 2023-10-01 10:05 | Outpatient (BNVA) | payer MEDICARE, BC, SELFPAY | PROVIDERS: PCP Internal Medicine; Visit Provider Urology ==

== ENCOUNTER 2023-11-27 16:49 | Outpatient (AMB) | payer MEDICARE, BC, SELFPAY ==
--- NOTE | 2023-11-27 16:49 | MHC.PC.OV ---
Intake Visit Reasons: HDF ~ [facility] - Swelling in legs Escrow Manager Required: No Information Interpreted: non-clinical & clinical Gis Coordinator: Not Required per policy Accompanied by: Self / Same As Patient Allergies No Known Allergies Allergy (Verified 11/27/23 16:50) Tobacco use date assessed: 08/27/23 Dental Screening Dental Screen Date: 08/27/23 HPI HDF ~ [facility] - Swelling in legs HPI Details 73-year-old female with impaired glucose tolerance hypercholesterolemia hypothyroid generalized anxiety disorder last seen in 08/27/2023. Patient's mammogram declined colonoscopy declined. Patient has called in in November 12 due to venous stasis dermatitis and was concerned about infection prompting for consultation today. Patient did have blood work done also in November 11 showing normal blood count normal platelets normal white blood cell count normal electrolytes normal kidney function normal sugar BNP was done negative had ER visit 11/10/2023 for the venous stasis dermatitis. Patient did see the Urology also in September 30 for urinary incontinence was prescribed Gemtessa to replace for VESIcare advised cutting down on coffee Kegel exercises and timed voiding. Patient did not take the Gemtessa and increased only VESIcare to 10 mg once a day. Noted to have an ultrasound of the kidney where the left had some calcifications and was advised retesting CT scan in 6 months. PAitient also has a bed sore- and has been sleepoing sitting down. states had a bad cold but did not test for covid. triad ointment given for bed sore and for the leg xeroform PFSH Medical History Hematuria Right shoulder pain Eczema Tick bite Osteoarthritis, knee Urinary incontinence Hypercholesterolemia Obesity (BMI 30-39.9) Hypothyroid Thyroid nodule Surgical History History of thyroid nodule S/P PARTH-BSO (total abdominal hysterectomy and bilateral salpingo-oophorectomy) History of tonsillectomy and adenoidectomy Family History Father CAD (coronary artery disease) Lung cancer CVD (cardiovascular disease) Mother Pancreatic cancer Colon cancer Maternal Grandmother Leukemia Maternal Grandfather Pancreatic cancer Paternal Grandfather Throat cancer Social History Housing: House Alcohol intake: never Patient Tobacco Use Status: Never used Tobacco e-Cigarette/Vaping Use: Never Used Second Hand Smoke Exposure: No Current occupational status: retired Cognitive needs: Yes (cane) Hearing needs: No Vision needs: Yes (glasses) Questionnaire Thrive Questionnaire Date Thrive assessed: 08/27/23 VANNESSA-7 AMB Questionnaire VANNESSA-7 Date VANNESSA - 7 assessed: 08/27/23 Source: Developed by Drs. Talat Hernandez, Marilyn Figueroa, Beto Bojorquez and colleagues, with an educational justin from [employer]. Physical exam (Primary Care) Tobacco/Smoking Status: Tobacco use Status Tobacco use date assessed 08/27/23 11/27/23 16:51 Patient Tobacco Use Status Never used Tobacco 11/27/23 16:51 e-Cigarette/Vaping Use Never Used 11/27/23 16:51 Thrive Assessment: Date of Thrive Assessment Date Thrive assessed 08/27/23 11/27/23 16:51 Telehealth Telehealth Telehealth Platform: Telephone Location of provider rendering services: practice address Location of patient: address on file Patient Identification confirmed using: Name, : Yes Telehealth method: voice only Patient verbally consented to treatment: Yes Patient verbally consented to billing insurance company: Yes Patient informed of any privacy concerns related to visit: Yes Minutes spent on Phone/Video with Pt.: 25 Assessment and Plan Assessment & Plan (1) Functional urinary incontinence: Code(s): R39.81 - Functional urinary incontinence Plan: Patient was seen by Urology and has been placed on VESIcare. Timed voiding meaning every 1-2 hours even if you do not feel like urinating empty the bladder, avoid drinks with high sweet content like juices or caffeine that makes her urinate, 2 hours before you sleep hold liquids so that in the morning you do not get the bladder to be too full. (2) Venous stasis dermatitis: Code(s): I87.2 - Venous insufficiency (chronic) (peripheral) Plan: When sitting down elevate the legs, exercise, and support stockings. discussed about wet dry dressing and anel wrap. and wrap tight - do this QD until swelling is better (3) Obesity (BMI 30-39.9): Code(s): E66.9 - Obesity, unspecified Plan: Diet and exercise (4) Hypercholesterolemia: Code(s): E78.00 - Pure hypercholesterolemia, unspecified Plan: Avoid fried foods, chicken skin, eggs, butter margarine, pastries and meat. Be it pork or beef they have a lot of cholesterol LDL goal of less than 130 and triglyceride of less than 150 on simvastatin 10 mg once a day (5) Generalized anxiety disorder: Code(s): F41.1 - Generalized anxiety disorder (6) Renal calcification: Code(s): N28.89 - Other specified disorders of kidney and ureter Plan: advised to get Ct scan in 6 months (7) Pressure sore of ischial area: Code(s): L89.309 - Pressure ulcer of unspecified buttock, unspecified stage Plan: discussed the importance of releasing pressure to let this heal. antibiotic ointment to prevent infection Coding Level of Care Code Tele Est Pt Level 4 (94343) Diagnoses Functional urinary incontinence R39.81 Venous stasis dermatitis I87.2 Obesity (BMI 30-39.9) E66.9 Hypercholesterolemia E78.00 Generalized anxiety disorder F41.1 Renal calcification N28.89 Pressure sore of ischial area L89.309
== END 2023-11-27 18:04 | disposition home or self-care (01) ==
LOC: HO.HMGH 16:49
PROVIDERS: PCP Internal Medicine; Visit Provider Internal Medicine
DX: R39.81 Functional urinary incontinence (principal); I87.2 Venous insufficiency (chronic) (peripheral); E78.00 Pure hypercholesterolemia, unspecified; F41.1 Generalized anxiety disorder; N28.89 Other specified disorders of kidney and ureter; L89.309 Pressure ulcer of unspecified buttock, unspecified stage
CPT/HCPCS: 99443

== ENCOUNTER 2023-12-02 16:29 | Outpatient (REF) | payer MEDICARE, BC, SELFPAY ==
[2023-12-02 16:55] LABS: MANUAL DIFF FLAG NO
[2023-12-02 17:06] LABS: Basophils Percent Auto 1.1 % (0-2); Eosinophils Absolute Auto 0.1 X10*3/uL (0.0-0.4); Eosinophils Percent Auto 2.7 % (0-4); Hematocrit 39.8 % (37.0-47.0); Hemoglobin 13.4 g/dl (12.0-16.0); Imm Gran Abs Auto 0.01 X10*3/uL (0.00-0.03); Imm Gran Pct Auto 0.3 % (0.0-0.4); Lymphocytes Absolute Auto 1.1 X10*3/uL (1.2-4.9); Lymphocytes Percent Auto 29.8 % (20-40); Mean Corpuscular HGB Conc 33.7 g/dl (31.0-35.0); Mean Corpuscular Hemoglobin 30.4 pg (27.0-33.0); Mean Corpuscular Volume 90.2 fL (80.0-98.0); Mean Platelet Volume 9.6 fL (9.4-12.3); Monocytes Absolute Auto 0.3 X10*3/uL (0.1-1.2); Monocytes Percent Auto 8.2 % (2-11); Neutrophils Absolute Auto 2.1 x10*3/uL (2.0-8.3); Neutrophils Percent Auto 57.9 % (45-73); Platelet Count 266 X10*3/uL (160-400); Red Blood Count 4.41 X10*6/uL (4.20-5.50); Red Cell Distribution Width 13.7 % (11.0-16.0); White Blood Count 3.7 X10*3/uL (4.8-10.8)
[2023-12-02 17:11] LABS: Estimated Average Glucose 103 mg/dL; Hemoglobin A1c % 5.2 % (<6.0)
[2023-12-02 17:18] LABS: Appearance Urine Clear; Color Urine Dark Yellow; Glucose Urine UA Negative (Negative); Leukocyte Esterase Urine Negative (Negative); Nitrite Urine Negative (Negative); PH 5.5 (5.0-9.0); Specific Gravity - Urine 1.015 (1.005-1.025); Urine Blood Negative (Negative); Urine Ketones Negative (Negative); Urine Protein Negative (Neg-Trace)
[2023-12-02 17:24] LABS: B Type Natriuretic Peptide 14 pg/mL (<100)
[2023-12-02 17:44] LABS: Alanine Aminotransferase 18 U/L (0-31); Albumin Level 3.9 g/dL (3.5-5.0); Alkaline Phosphatase 70 U/L (39-117); Anion Gap 8 (12-20); Aspartate Amino Transferase 16 U/L (5-31); Bilirubin Total 0.5 mg/dL (0.0-1.0); Blood Urea Nitrogen 16 mg/dL (9-16); Calcium 9.7 mg/dL (8.4-10.2); Carbon Dioxide 29 mmol/L (22-29); Chloride 108 mmol/L (96-108); Cholesterol 216 mg/dL (<200); Estimated Glomerular Filt Rate > 60; Glucose Random 101 mg/dL (60-115); HDL Cholesterol 62 mg/dL (>40); LDL Cholesterol Calculated 139 mg/dL (<100); Potassium 4.1 mmol/L (3.3-5.1); Sodium 141 mmol/L (135-145); Total Protein 6.8 g/dL (6.5-8.0); Triglycerides 77 mg/dL (<150)
[2023-12-02 18:00] LABS: Thyroid Stimulating Hormone 1.92 uIU/mL (0.32-4.0)
[2023-12-02 18:12] LABS: Folate 11.4 ng/mL (> or = 4.0); Vitamin B12 727 pg/mL (200-900)
== END 2023-12-02 16:30 | disposition home or self-care (01) ==
LOC: HO.LAB 16:29
PROVIDERS: PCP Internal Medicine; Visit Provider Internal Medicine
DX: R73.01 Impaired fasting glucose (principal); E03.9 Hypothyroidism, unspecified; R30.0 Dysuria; E78.00 Pure hypercholesterolemia, unspecified
CPT/HCPCS: 36415; 80053; 80061; 81003; 82607; 82746; 83036; 83880; 84439; 84443; 85025

== ENCOUNTER 2024-03-28 15:47 | Outpatient (REF) | payer MEDICARE, BC, SELFPAY | END 2024-03-28 15:48 | disposition home or self-care (01) | LOC: HO.CT 15:47 | PROVIDERS: PCP Internal Medicine; Visit Provider Urology | DX: Z13.89 Encounter for screening for other disorder (principal) ==

== ENCOUNTER 2024-06-23 15:41 | Outpatient (REF) | payer MEDICARE, BC, SELFPAY ==
[2024-06-23 16:02] LABS: MANUAL DIFF FLAG NO
[2024-06-23 17:02] LABS: Basophils Absolute Auto 0.1 X10*3/uL (0.0-0.2); Basophils Percent Auto 1.3 % (0-2); Eosinophils Absolute Auto 0.2 X10*3/uL (0.0-0.4); Eosinophils Percent Auto 5.7 % (0-4); Hematocrit 37.9 % (37.0-47.0); Hemoglobin 12.8 g/dl (12.0-16.0); Imm Gran Abs Auto 0.01 X10*3/uL (0.00-0.03); Imm Gran Pct Auto 0.3 % (0.0-0.4); Lymphocytes Percent Auto 26.4 % (20-40); Mean Corpuscular HGB Conc 33.8 g/dl (31.0-35.0); Mean Corpuscular Hemoglobin 30.8 pg (27.0-33.0); Mean Corpuscular Volume 91.1 fL (80.0-98.0); Mean Platelet Volume 10.8 fL (9.4-12.3); Monocytes Absolute Auto 0.4 X10*3/uL (0.1-1.2); Monocytes Percent Auto 9.9 % (2-11); Neutrophils Absolute Auto 2.2 x10*3/uL (2.0-8.3); Neutrophils Percent Auto 56.4 % (45-73); Platelet Count 228 X10*3/uL (160-400); Red Blood Count 4.16 X10*6/uL (4.20-5.50); Red Cell Distribution Width 14.1 % (11.0-16.0); White Blood Count 3.8 X10*3/uL (4.8-10.8)
[2024-06-23 17:11] LABS: Estimated Average Glucose 100 mg/dL; Hemoglobin A1C 109.4651 umol/L; Hemoglobin A1c % 5.1 % (<6.0); Total Hemoglobin (HGBA1C) 3376.4192 umol/L
[2024-06-23 17:41] LABS: Alanine Aminotransferase 15 U/L (0-31); Alkaline Phosphatase 77 U/L (39-117); Anion Gap 12 (12-20); Aspartate Amino Transferase 19 U/L (5-31); Bilirubin Total 0.5 mg/dL (0.0-1.0); Blood Urea Nitrogen 16 mg/dL (9-16); Calcium 9.2 mg/dL (8.4-10.2); Carbon Dioxide 26 mmol/L (22-29); Chloride 107 mmol/L (96-108); Cholesterol 176 mg/dL (<200); Estimated Glomerular Filt Rate > 60; Glucose Random 88 mg/dL (60-115); HDL Cholesterol 76 mg/dL (>40); LDL Cholesterol Calculated 93 mg/dL (<100); Potassium 3.6 mmol/L (3.3-5.1); Sodium 141 mmol/L (135-145); Total Protein 6.9 g/dL (6.5-8.0); Triglycerides 38 mg/dL (<150)
[2024-06-23 17:59] LABS: Free T4 (Free Thyroxine) 1.22 ng/dL (0.71-1.85); Thyroid Stimulating Hormone 5.29 uIU/mL (0.32-4.0); Vitamin D 25-OH Total 26.6 ng/mL (>30)
[2024-06-23 18:05] LABS: Folate 10.8 ng/mL (> or = 4.0); Vitamin B12 634 pg/mL (200-900)
== END 2024-06-23 15:42 | disposition home or self-care (01) ==
LOC: HO.LAB 15:41
PROVIDERS: PCP Internal Medicine; Visit Provider Internal Medicine
DX: E03.9 Hypothyroidism, unspecified (principal); R73.01 Impaired fasting glucose; E78.00 Pure hypercholesterolemia, unspecified
CPT/HCPCS: 36415; 80053; 80061; 82306; 82607; 82746; 83036; 84439; 84443; 85025

== ENCOUNTER 2024-06-24 13:03 | Outpatient (AMB) | payer MEDICARE, BC, SELFPAY ==
--- NOTE | 2024-06-24 13:15 | A.OFFPC_ITS ---
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 Required: No Accompanied by: Self / Same As Patient Allergies No Known Allergies Allergy (Verified 06/24/24 13:24) Medication List - Last Reconciled 06/24/24 by Deric Morales MD aspirin (Adult Low Dose Aspirin) 81 mg PO DAILY calcium carbonate 500 mg PO DAILY cholecalciferol (vitamin D3) 50 mcg PO DAILY cinnamon bark (Cinnamon) 500 mg PO DAILY coenzyme Q10 (Co Q-10) 50 mg PO DAILY cranberry fruit 400 mg PO DAILY furosemide 20 mg PO DAILY yumiko (Zingiber officinalis) 500 mg PO DAILY glucosamine sulfate (Glucosamine) 500 mg PO DAILY lactobacillus combination no.8 (Adult Probiotic) 3,000 mmu cells PO DAILY multivitamin 1 tab PO DAILY omega-3 fatty acids 1,000 mg PO DAILY plant stanol bernardino (Cholest Off) mg PO simvastatin 10 mg PO DAILY solifenacin (Vesicare) 10 mg PO DAILY Synthroid (levothyroxine) 137 mcg PO QAM NS tramadol 50 mg PO Q6H PRN 15 days triamcinolone acetonide 0.5% 1 appl topical BID 14 days turmeric root extract 500 mg PO DAILY vitamin B complex 1 tab PO DAILY walker As directed Tobacco use date assessed: 06/24/24 Fall risk assessment: No Falls in past year Last assessed Fall Risk: 06/24/24 Dental Screening Dental Screen Date: 06/24/24 Did you have a dental problem in the last 6 months where you did not have access to dental care?: No Was dental information given to patient?: Patient has dentist [facility] Medical History Hematuria Right shoulder pain Eczema Tick bite Osteoarthritis, knee Urinary incontinence Hypercholesterolemia Obesity (BMI 30-39.9) Hypothyroid Thyroid nodule Surgical History History of thyroid nodule S/P PARTH-BSO (total abdominal hysterectomy and bilateral salpingo-oophorectomy) History of tonsillectomy and adenoidectomy Family History Father CAD (coronary artery disease) Lung cancer CVD (cardiovascular disease) Mother Pancreatic cancer Colon cancer Maternal Grandmother Leukemia Maternal Grandfather Pancreatic cancer Paternal Grandfather Throat cancer Social History Housing: House Alcohol intake: never Patient Tobacco Use Status: Never used Tobacco e-Cigarette/Vaping Use: Never Used Second Hand Smoke Exposure: No Current occupational status: retired Cognitive needs: Yes (cane) Hearing needs: No Vision needs: Yes (glasses) Questionnaire PHQ-9 Over the last 2 weeks, how often have you been bothered by any of the following problems? 1. Little interest or pleasure in doing things: not at all 2. Feeling down, depressed, or hopeless: not at all 3. Trouble falling or staying asleep, or sleeping too much: not at all 4. Feeling tired or having little energy: not at all 5. Poor appetite or overeating: not at all 6. Feeling bad about yourself - or that you are a failure or have let yourself or your family down: not at all 7. Trouble concentrating on things, such as reading the newspaper or watching television: not at all 8. Moving or speaking so slowly that other people could have noticed. Or the opposite - being so fidgety or restless that you have been moving around a lot more than usual: not at all 9. Thoughts that you would be better off or of hurting yourself in some way: not at all Total score: 0 Depression Screening Interpretation: Negative Depression Screening Done: Yes 93624 - PHQ-9 Billing: Yes Source: Developed by Drs. Talat Hernandez, Marilyn Figueroa, Beto Bojorquez and colleagues, with an educational justin from [employer]. Thrive Questionnaire Date Thrive assessed: 06/24/24 I am a: Patient What is your living situation today?: I have a steady place to live Within the past 12 months, did the food you bought not last and you didn't have the money to get more?: Never true Within the past 12 months, did you worry whether your food would run out before you got money to buy more?: Never true Do you have trouble paying for medicines?: No Do you have trouble getting transportation to medical appointments?: No Do you have trouble paying your heating and electricity bill?: No Do you have trouble taking care of your child, family member or friend?: No Do you have trouble with day-to-day activities such as bathing, preparing meals, shopping, managing finances, etc.?: No Are you currently unemployed and looking for a job?: No Are you interested in more education?: No Please select the resources that you would like help with: None Currently or been in a relationship where the following occur: No concerns reported THRIVE Score: 0 AUDIT C Alcohol Use Questionnaire (AUDIT-C) 1. How often do you have a drink containing alcohol?: Monthly or less 2. How many drinks containing alcohol do you have on a typical day when you are drinking?: 1 or 2 3. How often do you have six or more drinks on one occasion?: Never Total Score: 1 VANNESSA-7 AMB Questionnaire VANNESSA-7 Date VANNESSA - 7 assessed: 06/24/24 Feeling nervous, anxious, or on edge: 0 = Not at all Not being able to stop or control worryin = Not at all Worrying too much about different things: 0 = Not at all Trouble relaxin = Not at all Being so restless that it is hard to sit still: 0 = Not at all Becoming easily annoyed or irritable: 0 = Not at all Feeling afraid as if something awful might happen: 0 = Not at all Total VANNESSA-7 score (0-4 normal; 5-9 mild; 10-14 moderate; 15-21 severe): 0 Source: Developed by Drs. Talat Hernandez, Marilyn Figueroa, Beto Bojorquez and colleagues, with an educational justin from [employer]. VANNESSA-7 Assessment Billing VANNESSA-7 Assessment Tool: VANNESSA-7 Assessment 44567 Physical exam (Primary Care) Vital Signs: Last Vital Signs Temp 97.5 F 06/24/24 13:16 Pulse 90 06/24/24 13:16 BP 140/62 H 06/24/24 13:16 Pulse Ox 96 06/24/24 13:16 Oxygen Delivery Method Room Air 06/24/24 13:16 Tobacco/Smoking Status: Tobacco use Status Tobacco use date assessed 06/24/24 06/24/24 13:26 Patient Tobacco Use Status Never used Tobacco 06/24/24 13:16 e-Cigarette/Vaping Use Never Used 06/24/24 13:16 PHQ-9: PHQ-9 Score PHQ-9: Total score 0 06/24/24 13:26 Depression Screening Interpretation: Negative Thrive Assessment: Date of Thrive Assessment Date Thrive assessed 06/24/24 06/24/24 13:26 Currently or been in a relationship where the following occur: No concerns reported Const General: alert; No acute distress Eyes Conjunctivae: conjunctivae normal Resp Auscultation: clear to auscultation bilaterally Cardio Rate: regular rate Rhythm: regular rhythm GI Inspection: Yes normal to inspection Extrem General: Yes normal to inspection and No edema Coding Level of Care Code Est Pt Level 4 (72126) Complex EM visit Add On G2211 Diagnoses Acquired hypothyroidism E03.9 Hypothyroidism type: acquired Obesity (BMI 30-39.9) E66.9 Hypercholesterolemia E78.00 Generalized anxiety disorder F41.1 Impaired fasting blood sugar R73.01 OAB (overactive bladder) N32.81 Venous stasis dermatitis I87.2 Pressure sore of ischial area L89.309 Leg swelling M79.89 Additional Codes VANNESSA-7 Assessment Billing - VANNESSA-7 Assessment Tool: VANNESSA-7 Assessment 13332 ([id number]) PHQ-9 - 19904 - PHQ-9 Billing: Yes ([id number]) Assessment & Plan Assessment & Plan (1) Hypothyroid: Comment: Thyroidectomy last just general none cancer Code(s): E03.9 - Hypothyroidism, unspecified Category: Medical Qualifiers: Hypothyroidism type: acquired Qualified Code(s): E03.9 - Hypothyroidism, unspecified (2) Obesity (BMI 30-39.9): Code(s): E66.9 - Obesity, unspecified Category: Medical Plan: Diet and exercise (3) Hypercholesterolemia: Code(s): E78.00 - Pure hypercholesterolemia, unspecified Category: Medical Plan: Avoid fried foods, chicken skin, eggs, butter margarine, pastries and meat. Be it pork or beef they have a lot of cholesterol on simvastatin 10 mg once a day (4) Generalized anxiety disorder: Code(s): F41.1 - Generalized anxiety disorder Category: Medical Plan: Stable (5) Impaired fasting blood sugar: Code(s): R73.01 - Impaired fasting glucose Category: Medical Plan: Decrease the amount of carbohydrate intake, pasta, bread, rice and potatoes are all sugar and that is aside from all the sweet stuff, remember that fruits are good but they are Sweet also. (6) OAB (overactive bladder): Code(s): N32.81 - Overactive bladder Category: Medical Plan: Timed voiding meaning every 1-2 hours even if you do not feel like urinating empty the bladder, avoid drinks with high sweet content like juices or caffeine that makes her urinate, 2 hours before you sleep hold liquids so that in the m orning you do not get the bladder to be too full. (7) Venous stasis dermatitis: Code(s): I87.2 - Venous insufficiency (chronic) (peripheral) Category: Medical Plan: When sitting down elevate the legs, exercise, and support stockings (8) Pressure sore of ischial area: Code(s): L89.309 - Pressure ulcer of unspecified buttock, unspecified stage Category: Medical Plan: Discussed with the patient need to start walking (9) Leg swelling: Code(s): M79.89 - Other specified soft tissue disorders Category: Medical Plan History of Present Illness The patient is a 73-year-old female presenting for a follow-up evaluation of her multiple chronic health conditions. Recently, she experienced challenges with venous stasis dermatitis, reporting leg swelling, ulceration, and leakage of serum. She is currently managing her cardiovascular health through dietary changes and medication, resulting in improved cholesterol levels. Her hypothyroidism shows indications of slightly increased TSH levels due to inconsistent medication timing. Additional concerns include difficulties related to mobility influenced by knee osteoarthritis and peripheral vascular disease, as well as vitamin D deficiency and anxiety management. Despite these challenges, she is taking steps to balance medication and lifestyle adjustments to address her ongoing conditions. Health Maintenance - Declined screenings: mammogram, bone density test, colonoscopy - LDL cholesterol improved from 139 to 93 on simvastatin 10 mg daily - Vitamin D level low at 26, indicating deficiency - Elevated TSH indicating potential suboptimal management of hypothyroidism Social History - Nutritional intake: Attempts to maintain a protein-rich diet including salmon and vegetables; preference for occasional Mongolian food despite its high salt content - Exercise: Limited due to knee osteoarthritis and peripheral vascular disease; advised to increase activity - Family support: Relies on assistance from family members such as her son for daily activities - Functional status: Experiences difficulty using stairs and elevating legs due to mobility issues Review of Systems - Cardiovascular: Reports leg swelling and leakage due to venous stasis - Musculoskeletal: Denies joint pain beyond knee osteoarthritis - Endocrine: Reports low vitamin D levels - Dermatologic: Reports redness and ulceration in skill area due to previous pressure sores Physical Exam Results - Labs: Mild leukopenia, TSH elevated, normal blood count with no anemia, normal electrolyte chemistry, normal kidney function, normal blood sugar, normal liver function tests. LDL cholesterol reduced to 93, Vitamin D low at 26 - Imaging: Renal calcification noted previously Plan The patient should maintain current medication regimen for hypothyroidism and hypercholesterolemia while ensuring adherence to timing for effectiveness. Furosemide has been prescribed to manage leg swelling related to venous stasis dermatitis, with recommendations to explore intermittent compression device utility. Follow-up labs will review vitamin and hormone levels. Potential dietary changes viewed positively, and consultation will be pursued. Patient was informed and verbally consented to the use of an ambient scribe for clinic note documentation during this visit. Discussion Notes I discussed with the patient her current management and treatment plans, emphasizing the importance of consistency in her hypothyroidism treatment and managing vitamin D deficiency. We reviewed the benefits of simvastatin in her improved cholesterol profile. The risk of potential complications associated with untreated venous stasis dermatitis was covered, and I advised implementing compression therapy and monitoring for symptom resolution. Discussions on lifestyle changes, particularly dietary adjustments, were made. She was advised to follow up with her primary care provider for retesting thyroid function. Patient Instructions Orders: Orders Comprehensive Met. Panel 2 Months R73.01 - Impaired fasting glucose PT Evaluation and Treatment Today M89 - Other specified soft tissue disorders US venous duplex LE BI Today M.89 - Other specified soft tissue disorders Referrals Nutrition/Dietitian Referral E78.00 - Pure hypercholesterolemia, unspecified, R73.01 - Impaired fasting glucose Medications: New erythromycin 1 appl ophthalmic-Left DAILY 3.5 grams 0RF R73.01 - Impaired fasting glucose [ROLLATOR] As directed 1 ea 0RF I87.2 - Venous insufficiency (chronic) (peripheral) Refilled furosemide 20 mg PO DAILY 30 tabs 0RF solifenacin (Vesicare) to replace vesicare 5 mg 10 mg PO DAILY 30 tabs 5RF urinary incontinence R73.01 - Impaired fasting glucose
[2024-06-24 13:16] VITALS: BP 140/62; PULSE 90; TEMP 36.4; O2SAT 96
== END 2024-06-24 13:50 | disposition home or self-care (01) ==
LOC: HO.HMCH 13:04
PROVIDERS: PCP Internal Medicine; Visit Provider Internal Medicine
DX: E03.9 Hypothyroidism, unspecified (principal); E78.00 Pure hypercholesterolemia, unspecified; F41.1 Generalized anxiety disorder; R73.01 Impaired fasting glucose; E66.9 Obesity, unspecified; N32.81 Overactive bladder; I87.2 Venous insufficiency (chronic) (peripheral); L89.309 Pressure ulcer of unspecified buttock, unspecified stage; M79.89 Other specified soft tissue disorders

== ENCOUNTER → 2024-06-24 13:03 | Outpatient (BNVA) | payer MEDICARE, BC, SELFPAY | PROVIDERS: PCP Internal Medicine; Visit Provider Internal Medicine | DX: E03.9 Hypothyroidism, unspecified (principal); E66.9 Obesity, unspecified; E78.00 Pure hypercholesterolemia, unspecified; F41.1 Generalized anxiety disorder; R73.01 Impaired fasting glucose; N32.81 Overactive bladder; I87.2 Venous insufficiency (chronic) (peripheral); L89.309 Pressure ulcer of unspecified buttock, unspecified stage; M79.89 Other specified soft tissue disorders | CPT/HCPCS: 96127; 99212 ==

== ENCOUNTER 2024-09-08 15:20 | Outpatient (AMB) | payer MEDICARE, BC, SELFPAY ==
--- NOTE | 2024-09-08 15:00 | MHC.OFFVIS ---
Intake Visit Reasons: follow up/CT Intake Note: Pt presents to the office as a telehealth visit for a follow up/CT. Allergies No Known Allergies Allergy (Verified 09/08/24 15:19) HPI Comments Details: 09/08/24-- History of Present Illness - The patient is a 73-year-old female presenting with urinary incontinence. - She experiences significant swelling in her legs, and has been prescribed furosemide with limited improvement. - Her arthritis complicates mobility and symptom management. - A CAT scan identified a kidney stone in the left kidney, currently asymptomatic. - Urinary incontinence is managed with pads, and she has been advised to reduce coffee intake to alleviate symptoms. Urinary Symptoms Review - Urinary incontinence exacerbated by diuretics, managed with pads. - Advised to reduce coffee intake to help manage bladder leakage. Results - CAT scan: Kidney stone in the left kidney, currently not causing obstruction. 10/01/2023--Della is followed due to urinary incontinence. Comorbidity osteoarthritis, the patient states she has a hard time getting around due to the arthritis. She was prescribed Gemtesa to replace VESIcare 5 mg however she read the side effects for Gemtesa and did not use it. She is continued to take the VESIcare 5 mg which was prescribed by her PCP. She is continuing to have leakage. She admits to drinking 8-9 cups of coffee daily. I have discussed cutting back to 2 cups of coffee. I have discussed behavioral modification including Kegel exercises and timed voiding. I will increase the VESIcare to 10 mg. I have reviewed renal ultrasound 08/12/23, Left kidney there was a renal calcification unclear if it is vascular or a renal stone, will re-evaluate kidneys with CT scan in 6 months. 10/19/2022-- Della is a 72-year-old female who presents today to the office as a new patient evaluation for urinary incontinence. Comorbidities: obesity, osteoarthritis.?She states that she needs to use a cane or walker to get around due to her arthritis. She states that she has been on VESIcare 5mg for few years, states that was initially showed mild improvement, had less urgency. Her urinary symptoms have been worsening at this time. She describes being soaked due to urinary leakage, and has to change multiple pads. She denies any prior urinary tract infections. She had 5 vaginal deliveries.?She had total hysterectomy in the past.?Evaluation today UA: leucocytes: negative; blood: negative. Prescribed Gemtesa 75mg daily, and advised the patient to discontinue taking VESIcare while taking Gemtesa. Renal US. PFSH Medical History Hematuria Right shoulder pain Eczema Tick bite Osteoarthritis, knee Urinary incontinence Hypercholesterolemia Obesity (BMI 30-39.9) Hypothyroid Thyroid nodule Surgical History History of thyroid nodule S/P PARTH-BSO (total abdominal hysterectomy and bilateral salpingo-oophorectomy) History of tonsillectomy and adenoidectomy Family History Father CAD (coronary artery disease) Lung cancer CVD (cardiovascular disease) Mother Pancreatic cancer Colon cancer Maternal Grandmother Leukemia Maternal Grandfather Pancreatic cancer Paternal Grandfather Throat cancer Social History Housing: House Alcohol intake: never Patient Tobacco Use Status: Never used Tobacco e-Cigarette/Vaping Use: Never Used Second Hand Smoke Exposure: No Current occupational status: retired Cognitive needs: Yes (cane) Hearing needs: No Vision needs: Yes (glasses) Review of Systems Const All systems reviewed & are unremarkable except as noted in HPI and below Reports no additional complaints Eyes Reports no additional complaints ENT Reports no additional complaints Card Reports no additional complaints Resp Reports no additional complaints GI Reports no additional complaints Reports as per HPI Musc Reports no additional complaints Skin/Breast Reports system reviewed and no additional complaints, except as documented Neuro Reports no additional complaints Psych Reports no additional complaints Endo Reports no additional complaints Landon/Lymph Reports no additional complaints Aller/Immun Reports no additional complaints Telehealth Telehealth Telehealth Platform: mydeco Location of provider rendering services: practice address Location of patient: address on file Patient Identification confirmed using: Name, : Yes Telehealth method: voice only Patient verbally consented to treatment: Yes Patient verbally consented to billing insurance company: Yes Patient informed of any privacy concerns related to visit: Yes Minutes spent on Phone/Video with Pt.: 18 Assessment & Plan Assessment & Plan (1) OAB (overactive bladder): Code(s): N32.81 - Overactive bladder Category: Medical (2) Urge incontinence: Code(s): N39.41 - Urge incontinence Category: Medical (3) Renal calcification: Code(s): N28.89 - Other specified disorders of kidney and ureter Category: Medical (4) Functional urinary incontinence: Code(s): R39.81 - Functional urinary incontinence Category: Medical Plan Plan - Monitor the kidney stone in the left kidney with a follow-up in four to six months. - Continue furosemide for fluid retention and reassess its effectiveness at the next visit. - Advise reduction of coffee intake to manage urinary incontinence. Patient Instructions: The patient had an opportunity to ask questions regarding treatment plan. The patient expressed understanding and agreement with the above treatment plan. The patient is aware they should contact our office by phone for worsening of their current condition or the appearance of new symptoms. Compliance is encouraged with any medications and followup testing that is ordered. It is a privilege to be allowed the opportunity to participate in the urologic care of your patient. If you have any questions or concerns regarding treatment for the above conditions please do not hesitate to contact me. The office telephone contact is [phone]. This note is constructed in part using voice recognition software. While every effort has been made to ensure accuracy transcription typist errors may have been included. Yours sincerely, Son Mayer MD Scribe Plan - Not visible on output: Patient was informed and verbally consented to the use of an ambient scribe for clinic note documentation during this visit. Coding Level of Care Code Tele Est Pt Level 4 (45246) Diagnoses OAB (overactive bladder) N32.81 Urge incontinence N39.41 Renal calcification N28.89 Functional urinary incontinence R39.81
== END 2024-09-08 15:44 | disposition home or self-care (01) ==
LOC: HO.HUSH 15:20
PROVIDERS: PCP Internal Medicine; Visit Provider Urology
DX: N32.81 Overactive bladder (principal); N28.89 Other specified disorders of kidney and ureter; R39.81 Functional urinary incontinence
CPT/HCPCS: 99214

== ENCOUNTER → 2024-09-08 15:20 | Outpatient (BNVA) | payer MEDICARE, BC, SELFPAY | PROVIDERS: PCP Internal Medicine; Visit Provider Urology | DX: Z13.89 Encounter for screening for other disorder (principal) ==

== ENCOUNTER 2025-01-11 15:38 | Outpatient (AMB) | payer MEDICARE, BC, SELFPAY ==
--- NOTE | 2025-01-11 15:38 | MHC.OFFVIS ---
Intake Visit Reasons: 4m/OAB Intake Note: Patient presents via telehealth for 4m/OAB Urology Medications: Solifenacin Blood Thinner: Aspirin Antibiotic Allergy:None Hotbed Lever Operator Required: No Accompanied by: Self / Same As Patient Allergies No Known Allergies Allergy (Verified 01/11/25 15:38) HPI Comments Details: 01/11/25--Della is followed for overactive bladder she was last seen in the office 09/08/2024 she is currently on VESIcare 10 mg daily she is prescribed Lasix which exacerbates her urinary symptoms. History of Present Illness The patient is a 74-year-old female presenting with overactive bladder symptoms. She has been following up for this condition and was last seen on September 08, 2024, and is currently on Vesicare 10 mg daily. The patient is also prescribed furosemide, which exacerbates her urinary symptoms. The patient reports significant peripheral edema, describing her legs as swollen like oak trees, which has led to weeping and required consultation with a citizen participation specialist. She has been advised to wear compression socks, which she sometimes wears for extended periods, causing indentations due to tightness. The patient has difficulty elevating her legs due to arthritis, which also affects her mobility, requiring the use of a cane and making it challenging to reach the bathroom in time. A previous CT scan revealed a kidney stone in the left kidney and bladder wall thickening, but no stones in the bladder. The patient does not experience pain from the kidney stone, and a follow-up ultrasound has been planned to monitor the condition. 30 minutes spent in review of records pertaining to this visit and discussion with the patient and documentation of this visit. Results - CT scan: 08/18/24-- Left kidney stone 8 mm Plan 1. Overactive Bladder - Continue Vesicare 10 mg daily. - Discussed that furosemide exacerbates urinary symptoms but targets different receptors than Vesicare. 2. Peripheral Edema- CoMorbidity - Continue wearing compression socks as advised by the citizen participation specialist. - Furosemide to help manage fluid buildup. 3. Kidney Stone - Plan for follow-up ultrasound to monitor the kidney stone. - Discussed dietary modifications, including low sodium diet and adding lemon to water to inhibit stone formation. 09/08/24-- History of Present Illness - The patient is a 73-year-old female presenting with urinary incontinence. - She experiences significant swelling in her legs, and has been prescribed furosemide with limited improvement. - Her arthritis complicates mobility and symptom management. - A CAT scan identified a kidney stone in the left kidney, currently asymptomatic. - Urinary incontinence is managed with pads, and she has been advised to reduce coffee intake to alleviate symptoms. Urinary Symptoms Review - Urinary incontinence exacerbated by diuretics, managed with pads. - Advised to reduce coffee intake to help manage bladder leakage. Results - CAT scan: Kidney stone in the left kidney, currently not causing obstruction. 10/01/2023--Della is followed due to urinary incontinence. Comorbidity osteoarthritis, the patient states she has a hard time getting around due to the arthritis. She was prescribed Gemtesa to replace VESIcare 5 mg however she read the side effects for Gemtesa and did not use it. She is continued to take the VESIcare 5 mg which was prescribed by her PCP. She is continuing to have leakage. She admits to drinking 8-9 cups of coffee daily. I have discussed cutting back to 2 cups of coffee. I have discussed behavioral modification including Kegel exercises and timed voiding. I will increase the VESIcare to 10 mg. I have reviewed renal ultrasound 08/12/23, Left kidney there was a renal calcification unclear if it is vascular or a renal stone, will re-evaluate kidneys with CT scan in 6 months. 10/19/2022-- Della is a 72-year-old female who presents today to the office as a new patient evaluation for urinary incontinence. Comorbidities: obesity, osteoarthritis.?She states that she needs to use a cane or walker to get around due to her arthritis. She states that she has been on VESIcare 5mg for few years, states that was initially showed mild improvement, had less urgency. Her urinary symptoms have been worsening at this time. She describes being soaked due to urinary leakage, and has to change multiple pads. She denies any prior urinary tract infections. She had 5 vaginal deliveries.?She had total hysterectomy in the past.?Evaluation today UA: leucocytes: negative; blood: negative. Prescribed Gemtesa 75mg daily, and advised the patient to discontinue taking VESIcare while taking Gemtesa. Renal US. [facility] Medical History Hematuria Right shoulder pain Eczema Tick bite Osteoarthritis, knee Urinary incontinence Hypercholesterolemia Obesity (BMI 30-39.9) Hypothyroid Thyroid nodule Surgical History History of thyroid nodule S/P PARTH-BSO (total abdominal hysterectomy and bilateral salpingo-oophorectomy) History of tonsillectomy and adenoidectomy Family History Father CAD (coronary artery disease) Lung cancer CVD (cardiovascular disease) Mother Pancreatic cancer Colon cancer Maternal Grandmother Leukemia Maternal Grandfather Pancreatic cancer Paternal Grandfather Throat cancer Social History Housing: House Alcohol intake: never Patient Tobacco Use Status: Never used Tobacco e-Cigarette/Vaping Use: Never Used Second Hand Smoke Exposure: No Current occupational status: retired Cognitive needs: Yes (cane) Hearing needs: No Vision needs: Yes (glasses) Review of Systems Const All systems reviewed & are unremarkable except as noted in HPI and below Reports no additional complaints Eyes Reports no additional complaints ENT Reports no additional complaints Card Reports no additional complaints Resp Reports no additional complaints GI Reports no additional complaints Reports as per HPI Musc Reports no additional complaints Skin/Breast Reports system reviewed and no additional complaints, except as documented Neuro Reports no additional complaints Psych Reports no additional complaints Endo Reports no additional complaints Landon/Lymph Reports no additional complaints Aller/Immun Reports no additional complaints Telehealth Telehealth Telehealth Platform: Telephone Location of provider rendering services: practice address Location of patient: address on file Patient Identification confirmed using: Name, : Yes Telehealth method: voice only Patient verbally consented to treatment: Yes Patient verbally consented to billing insurance company: Yes Patient informed of any privacy concerns related to visit: Yes Minutes spent on Phone/Video with Pt.: 17 Results Reviewed Results Reviewed: 08/18/24-- Left kidney stone 8 mm Date of Service: 08/12/23 EXAMINATION: US RETROPERITONEAL COMPLETE (RENAL) CLINICAL INFORMATION: Overactive bladder. COMPARISON: None available. TECHNIQUE: Real-time imaging of the kidneys and bladder. Technically limited study secondary to bowel gas, body habitus and limited mobility. FINDINGS: RIGHT KIDNEY: 10.0 x 4.7 x 3.6 cm (SAG x AP x TRV). No hydronephrosis. No renal calculi. Renal cortical thickness is normal. Limited visualization with particularly poor visualization of the lower pole. LEFT KIDNEY: 10.1 x 5.3 x 4.8 cm (SAG x AP x TRV). Renal cortical thickness is normal. Limited visualization. Mild left caliectasis. 08/12/2023 BLADDER: Partially distended. Bilateral ureteral jets are demonstrated. Prevoid bladder volume is 439 mL. Postvoid bladder volume is 118 mL. IMPRESSION: 1. Mild left caliectasis. Echogenic focus lower pole left kidney, possibly representing a calcified vessel versus nonobstructive calculus. 2. Postvoid bladder volume is 118 mL. Assessment & Plan Assessment & Plan (1) OAB (overactive bladder): Code(s): N32.81 - Overactive bladder Category: Medical (2) Urge incontinence: Code(s): N39.41 - Urge incontinence Category: Medical (3) Renal calcification: Code(s): N28.89 - Other specified disorders of kidney and ureter Category: Medical (4) Functional urinary incontinence: Code(s): R39.81 - Functional urinary incontinence Category: Medical Plan Plan 1. Overactive Bladder - Continue Vesicare 10 mg daily. - Discussed that furosemide exacerbates urinary symptoms but targets different receptors than Vesicare. 2. Peripheral Edema- CoMorbidity - Continue wearing compression socks as advised by the citizen participation specialist. - Furosemide to help manage fluid buildup. 3. Kidney Stone - Plan for follow-up ultrasound to monitor the kidney stone. - Discussed dietary modifications, including low sodium diet and adding lemon to water to inhibit stone formation. Medications: Refilled solifenacin (Vesicare) to replace vesicare 5 mg 10 mg PO DAILY 90 tabs 3RF urinary incontinence Patient Instructions: The patient had an opportunity to ask questions regarding treatment plan. The patient expressed understanding and agreement with the above treatment plan. The patient is aware they should contact our office by phone for worsening of their current condition or the appearance of new symptoms. Compliance is encouraged with any medications and followup testing that is ordered. It is a privilege to be allowed the opportunity to participate in the urologic care of your patient. If you have any questions or concerns regarding treatment for the above conditions please do not hesitate to contact me. The office telephone contact is [phone]. This note is constructed in part using voice recognition software. While every effort has been made to ensure accuracy drug room clerk errors may have been included. Yours sincerely, Son Mayer MD Scribe Plan - Not visible on output: Patient was informed and verbally consented to the use of an ambient scribe for clinic note documentation during this visit. Coding Level of Care Code Tele Est Pt Level 4 (10407) Complex EM visit Add On G2211 Diagnoses OAB (overactive bladder) N32.81 Urge incontinence N39.41 Renal calcification N28.89 Functional urinary incontinence R39.81
--- OUTSIDE RECORDS SUMMARY | 2025-01-11 21:45 | XMS_ITS | Encounter Summary ---
Author Organization [facility] Address [address] [place] [address] Phone Care Team Providers Care Home Lending Officer Name Role Phone Deric Morales MD Primary Care Provider [phone] Reason for Referral * Outpatient Procedure - Closed Specialty Diagnoses / Procedures Referred By Contac t Referred To Contact Radiology Diagnoses Other specified soft tissue disorders Procedures US Lower Extremity Veins Duplex Complete (Bilateral) Deric Morales MD Phone: tel: fax: Referral ID Status Reason Start Date Expiration Date Visits Re quested Visits Authorized [id number] Closed 07/20/2024 07/20/2025 1 1 Encounter Details Date Type Department Care Team (Late st Contact Info) Description 07/20/2024 Transcribe Orders Virtual Department [address] [place] [address] Deric Morales MD [address] [place] [address] Other specified soft tissue disorders (Primary Dx) Social History Tobacco Use Types Packs/Day Years Used Date Smoking Tobacco: Never Smokeless Tobacco: Never Alcohol Use Standard Drinks/Week Comments Yes 0 (1 standard drink = 0.6 oz pur e alcohol) rare Education Answer Date Recorded Are you interested in more education? Not on glenis e 07/17/2022 Are you concerned about learning? Not on file 07/17/2022 No 07/17/2022 No 07/17/2022 Digital Access Answer Date Recorded No 08/18/2022 No 08/18/2022 Reliable internet access at home? Not on file 08/18/2022 Device with a working camera? Not on file Intimate Partner Violence Answer Date R ecorded Are you denied basic needs s uch as food, clothing, or medical care? No 11/12/2023 In the past 12 months have y ou been in a relationship with a person who hurts, threatens, or tries to control you? No 11/12/2023 Are you denied basic needs s uch as food, clothing, or medical care? No 11/12/2023 In the past 12 months have y ou been in a relationship with a person who hurts, threatens, or tries to control you? No 11/12/2023 Comments Unknown Sex and Gender Information Value Date Recorded Sex Assigned at Not on file Legal Sex Female 7:11 PM EST Gender Identity Not on file Sexual Orientation Not on file documented as of this encounter Plan of Treatment Not on file documented as of this encounter Results * US Lower Extremity Veins Duplex Complete (Bilateral) (08/31/2024 6:25 PM EDT) Anatomical Region Laterality Modality Ultrasound 09/01/2024 7:06 AM EDT Impressions 09/01/2024 7:09 AM EDT * No evidence of deep or superficial venous thrombosis in the visualized veins of both lower extremities. Narrative 09/01/2024 7:09 AM EDT US LOWER EXTREMITY VEINS DUPLEX COMPLETE (BILATERAL) Referring clinician's provided indication for this examination in Epic: Outside Radiology Order; soft tissue disorder TECHNIQUE: Lower extremity venous ultrasound with color and spectral Doppler. COMPARISON: CT ABDOMEN/PELVIS WITHOUT CONTRAST FINDINGS: Exam Quality: Technically difficult exam demonstrates: Right lower extremity: Subcutaneous edema Common femoral vein: Normal compressibility and flow characteristics. Femoral vein: Normal compressibility and flow characteristics. Proximal profunda femoral vein: Normal compressibility. Popliteal vein: Normal compressibility and flow characteristics. Posterior tibial veins: Normal compressibility. Peroneal veins: Limited assessment. Normal compressibility of imaged segments. Gastrocnemius: Limited assessment. Normal compressibility of imaged segments. Great saphenous vein: Normal compressibility at the saphenofemoral junction. Left lower extremity: Subcutaneous edema Common femoral vein: Normal compressibility and flow characteristics. Femoral vein: Normal compressibility and flow characteristics. Proximal profunda femoral vein: Normal compressibility. Popliteal vein: Normal compressibility and flow characteristics. Posterior tibial veins: Limited assessment. Normal compressibility of imaged segments. Peroneal veins: Limited assessment. Normal compressibility of imaged segments. Gastrocnemius: Normal compressibility. Great saphenous vein: Normal compressibility at the saphenofemoral junction. Procedure Note Kimberly Luu MBBS - 09/01/2024 US LOWER EXTREMITY VEINS DUPLEX COMPLETE (BILATERAL) Referring clinician's provided indication for this examination in Epic:Outside Radiology Order; soft tissue disorder TECHNIQUE: Lower extremity venous ultrasound with color and spectralDoppler. COMPARISON: CT ABDOMEN/PELVIS WITHOUT CONTRAST FINDINGS: Exam Quality: Technically difficult exam demonstrates: Right lower extremity: Subcutaneous edema Common femoral vein: Normal compressibility and flow characteristics. Femoral vein: Normal compressibility and flow characteristics. Proximal profunda femoral vein: Normal compressibility. Popliteal vein: Normal compressibility and flow characteristics. Posterior tibial veins: Normal compressibility. Peroneal veins: Limited assessment. Normal compressibility of imagedsegments. Gastrocnemius: Limited assessment. Normal compressibility of imagedsegments. Great saphenous vein: Normal compressibility at the saphenofemoraljunction. Left lower extremity: Subcutaneous edema Common femoral vein: Normal compressibility and flow characteristics. Femoral vein: Normal compressibility and flow characteristics. Proximal profunda femoral vein: Normal compressibility. Popliteal vein: Normal compressibility and flow characteristics. Posterior tibial veins: Limited assessment. Normal compressibility ofimaged segments. Peroneal veins: Limited assessment. Normal compressibility of imagedsegments. Gastrocnemius: Normal compressibility. Great saphenous vein: Normal compressibility at the saphenofemoraljunction. IMPRESSION: * No evidence of deep or superficial venous thrombosis in the visualizedveins of both lower extremities. Deric Morales MD CV US VASCULAR Final Result documented in this encounter Visit Diagnoses Diagnosis Other specified soft tissue disorders- Primary Other specified soft tissue disorders documented in this encounter Care Teams Home Lending Officer Relationship Specialty Start Date End Date Deric Morales MD [address] [place] [address] [address] [place] [address] PCP - General Internal Medicine 12/14/17 documented as of this encounter Additional Source Comments The information contained in this document represents components of the legal health record. It is not the complete legal health record.[facility]
--- OUTSIDE RECORDS SUMMARY | 2025-01-11 21:45 | XMS_ITS | Encounter Summary ---
Author Organization [facility] Address [address] [facility] [address] [place] [address] Phone Care Team Providers Care Performance Improvement Analyst Name Role Phone Deric Morales MD Primary Care Provider [phone] Reason for Referral * MRI/CAT Scan - Closed Specialty Diagnoses / Procedures Referred By Contac t Referred To Contact Radiology Diagnoses Overactive bladder Other specified disorders of kidney and ureter Urge incontinence Procedures CT Abdomen/Pelvis Son Mayer MD Phone: tel: fax: Referral ID Status Reason Start Date Expiration Date Visits Re quested Visits Authorized [id number] Closed 07/25/2024 07/25/2025 1 1 Encounter Details Date Type Department Care Team (Late st Contact Info) Description 07/25/2024 Transcribe Orders Virtual Department [address] [place], [place] [phone] Son Mayer MD [address] [place] [address] [place] [phone] Overactive bladder (Primary Dx); Other specified disorders of kidney and ureter; Urge incontinence Social History Tobacco Use Types Packs/Day Years [...] documented as of this encounter Results * CT ABDOMEN/PELVIS WITHOUT CONTRAST (08/18/2024 7:37 PM EDT) Anatomical Region Laterality Modality Abdomen, Pelvis Computed Tomogra phy 08/22/2024 10:1 5 PM EDT Impressions 08/22/2024 10:[address]T [address] evidence for acute abdominal/pelvic process by noncontrast CT. 2. Nonobstructing left renal stones measuring up to 8 mm. 3. Unremarkable appearing urinary bladder without wall thickening nor urinary stone. 4. Moderate size hiatal hernia. 5. 4 mm solid nodule in the left lower lobe is nonspecific. As per Fleischner guidelines, no specific imaging followup is recommended in the absence of systemic malignancy, significant smoking history or risk factors for lung cancer. Otherwise, followup chest CT in 12 months is recommended to assess for stability. 6. Other findings, as above, including severe arthritis of the bilateral hips, right greater than left. Narrative 08/22/2024 10:[address] ABDOMEN/PELVIS WITHOUT CONTRAST Referring clinician's provided indication for this examination in Epic: Outside Radiology Order; overactive bladder, urge incontinence. TECHNIQUE: Multidetector-row CT of the abdomen and pelvis was performed without intravenous contrast using tailored dose modulation techniques. Images were reconstructed in the axial, coronal, and sagittal planes. COMPARISON: None. ABSENCE OF INTRAVENOUS CONTRAST DECREASES SENSITIVITY FOR DETECTION OF FOCAL LESIONS AND VASCULAR PATHOLOGY. FINDINGS: Lower Chest: No consolidation or pleural effusions. There is reticular opacity at the bilateral lung bases consistent with atelectasis/scarring. There is a 4 mm solid nodule in the subpleural left lower lobe on image 28 of series 4. Liver: There is a focal hypodensity in segment 2/3 measuring 18 mm and fluid density internally which is probably due to a cyst. Biliary: No biliary ductal dilatation. The gallbladder is mildly distended with low-level intraluminal nonspecific increased density. No radiopaque/calcified stones are seen. Spleen: Normal in size. Pancreas: No main ductal dilatation or gross focal lesion by noncontrast CT. Adrenal Glands: No nodules. Kidneys/Ureters: There is a curvilinear nonobstructing stone in the left lower pole measuring 8 mm. An additional 3 mm left upper pole nonobstructing stone is seen. There are no right renal stones. There is no hydronephrosis. There are probable left-sided peripelvic cysts. No discrete stones are seen along the expected course of the bilateral ureters. Bowel: There is a moderate size hiatal hernia with associated nonspecific thickening of the distal esophagus. Small bowel loops are normal in caliber without bowel obstruction. There is a moderate to large amount of stool throughout the colon. Portions the colon are collapsed and suboptimally assessed. There are a few scattered colonic diverticula without evidence for acute diverticulitis. The cecum is medialized. There are high density oval capsules seen within the cecum, likely ingested. Peritoneum/Retroperitoneum: No ascites or pneumoperitoneum. There is a tiny fat-containing umbilical hernia. Lymph Nodes: No enlarged abdominal or pelvic lymph nodes seen. There are scattered nonenlarged retroperitoneal lymph nodes. Pelvic Organs/Bladder: There are postoperative changes status post hysterectomy. There are calcified phleboliths in the pelvis. The urinary bladder is without significant wall thickening nor discrete stone. Vessels: No abdominal aortic aneurysm. There are mild aortic atherosclerotic calcifications. Bones/Soft Tissues: No destructive osseous lesions. There is heterogeneous osseous demineralization. There is grade 1 stepwise anterolisthesis of L2 on L3, L3 on L4, L4 on L5 and L5 on S1. There is a levoconvex curvature of the lumbar spine. There is multilevel facet joint arthrosis. There is severe end-stage arthritis of the right hip characterized by bony remodeling, osteophyte formation and subchondral sclerosis and cyst formation. Slightly less severe presumed degenerative arthritis is noted of the left hip with joint space narrowing, subchondral sclerosis and cyst formation. There is mild nonspecific edema within the subcutaneous tissues of the lower back. There is calcified granuloma seen in the left buttock. Procedure Note Viraj Wellington MD - 08/22/2024 CT ABDOMEN/PELVIS WITHOUT CONTRAST Referring clinician's provided indication for this examination in Epic:Outside Radiology Order; overactive bladder, urge incontinence. TECHNIQUE: Multidetector-row CT of the abdomen and pelvis was performedwithout intravenous contrast using tailored dose modulation techniques.Images were reconstructed in the axial, coronal, and sagittal planes. COMPARISON: None. ABSENCE OF INTRAVENOUS CONTRAST DECREASES SENSITIVITY FOR DETECTION OFFOCAL LESIONS AND VASCULAR PATHOLOGY. FINDINGS: Lower Chest: No consolidation or pleural effusions. There is reticularopacity at the bilateral lung bases consistent with atelectasis/scarring.There is a 4 mm solid nodule in the subpleural left lower lobe on image 28of series 4. Liver: There is a focal hypodensity in segment 2/3 measuring 18 mm andfluid density internally which is probably due to a cyst. Biliary: No biliary ductal dilatation. The gallbladder is mildly distendedwith low-level intraluminal nonspecific increased density. Noradiopaque/calcified stones are seen. Spleen: Normal in size. Pancreas: No main ductal dilatation or gross focal lesion by noncontrastCT. Adrenal Glands: No nodules. Kidneys/Ureters: There is a curvilinear nonobstructing stone in the leftlower pole measuring 8 mm. An additional 3 mm left upper polenonobstructing stone is seen. There are no right renal stones. There is nohydronephrosis. There are probable left- sided peripelvic cysts. Nodiscrete stones are seen along the expected course of the bilateralureters. Bowel: There is a moderate size hiatal hernia with associated nonspecificthickening of the distal esophagus. Small bowel loops are normal incaliber without bowel obstruction. There is a moderate to large amount ofstool throughout the colon. Portions the colon are collapsed andsuboptimally assessed. There are a few scattered colonic diverticulawithout evidence for acute diverticulitis. The cecum is medialized. Thereare high density oval capsules seen within the cecum, likely ingested. Peritoneum/Retroperitoneum: No ascites or pneumoperitoneum. There is atiny fat-containing umbilical hernia. Lymph Nodes: No enlarged abdominal or pelvic lymph nodes seen. There arescattered nonenlarged retroperitoneal lymph nodes. Pelvic Organs/Bladder: There are postoperative changes status posthysterectomy. There are calcified phleboliths in the pelvis. The urinarybladder is without significant wall thickening nor discrete stone. Vessels: No abdominal aortic aneurysm. There are mild aorticatherosclerotic calcifications. Bones/Soft Tissues: No destructive osseous lesions. There is heterogeneousosseous demineralization. There is grade 1 stepwise anterolisthesis of L2on L3, L3 on L4, L4 on L5 and L5 on S1. There is a levoconvex curvature ofthe lumbar spine. There is multilevel facet joint arthrosis. There issevere end-stage arthritis of the right hip characterized by bonyremodeling, osteophyte formation and subchondral sclerosis and cystformation. Slightly less severe presumed degenerative arthritis is notedof the left hip with joint space narrowing, subchondral sclerosis and cystformation. There is mild nonspecific edema within the subcutaneous tissues of thelower back. There is calcified granuloma seen in the left buttock. IMPRESSION: 1. No CT evidence for acute abdominal/pelvic process by noncontrast CT. 2. Nonobstructing left renal stones measuring up to 8 mm. 3. Unremarkable appearing urinary bladder without wall thickening norurinary stone. 4. Moderate size hiatal hernia. 5. 4 mm solid nodule in the left lower lobe is nonspecific. As perFleischner guidelines, no specific imaging followup is recommended in theabsence of systemic malignancy, significant smoking history or riskfactors for lung cancer. Otherwise, followup chest CT in 12 months isrecommended to assess for stability. 6. Other findings, as above, including severe arthritis of the bilateralhips, right greater than left. Son Mayer MD IMG CT ABD/PELVIS Final R esult documented in this encounter Visit Diagnoses Diagnosis Overactive bladder- Primary Hypertonicity of bladder Other specified disorders of kidney and ureter Urge incontinence Overactive bladder Hypertonicity of bladder Other specified disorders of kidney and ureter Urge incontinence documented in this encounter Care Teams Performance Improvement Analyst Relationship Specialty Start Date End Date Po, Deric Roy MD [address] [place] [address] [place] [phone] PCP - General Internal Medicine 12/14/17 documented as of this encounter Additional Source Comments The information contained in this document represents components of the legal health record. It is not the complete legal health record.[facility]
--- OUTSIDE RECORDS SUMMARY | 2025-01-11 21:45 | XMS_ITS | Encounter Summary ---
Author Organization [facility] Address [address] [place] [address] Phone Care Team Providers Care Wood Grinder Name Role Phone Deric Morales MD Primary Care Provider [phone] Encounter Details Date Type Department Care Team (Late st Contact Info) Description 07/25/2024 Procedure [facility], Ct Scan - [address] [address] Social History Tobacco Use Types Packs/Day Years [...] on file documented as of this encounter Visit Diagnoses Not on filedocumented in this encounter Care Teams Wood Grinder Relationship Specialty Start Date End Date Deric Morales MD [address] [facility] [address] [place] [phone] PCP - General Internal Medicine 12/14/17 documented as of this encounter Additional Source Comments The information contained in this document represents components of the legal health record. It is not the complete legal health record.[facility]
--- OUTSIDE RECORDS SUMMARY | 2025-01-11 21:45 | XMS_ITS | Patient Health Record ---
Author Organization [facility] Address [address] [place] [address] Care Team Providers Care Lead Pl Sql Developer Name Role Phone Deric Morales Primary Care Provider Benson Nolasco Unavailable [phone] Allergies No Known Allergies Reason For Referral No Information Medications Medication SIG (Take, Route, Fr equency, Duration) Notes Start Date End Date Status Lasix 20 MG 3 tablet Orally Once a day Active VESIcare 10 MG 1 tablet Orally Once a day Active Zocor 40 MG 1 tablet in the even ing Orally Once a day Active Problems Problem Type SNOMED Code ICD Code Onset Dates Problem Status W/U Status Risk Notes Problem Venous ulcer of lowe r extremity due to chronic peripheral venous hypertension (445361306455556) Chronic venous hypertension (idiopathic) with ulcer of left lower extremity (I87.312) Active confirmed Problem Lymphedema (561383743) Lymphedema, not elsewhere classified (I89.0) Active confirmed Problem Arthritis (5353808) Arthritis (M19.90) Active c onfirmed Problem Hypercholesterolemia (54249558) Hypercholesterolemia (E78.00) Active confirmed Problem Thyroid nodule (822309078) Thyroid nodule (E04.1) Active confirmed Problem Obesity (514213382) Obesity (E66.9) Active conf irmed Problem Hypothyroid (48863263) Hypothyroid (E03.9) Active confirmed Problem Kidney stone (11445907) Kidney stones (N20.0) Active confirmed Problem Urinary incontinence (367714385) Urinary incontinence (R32) Active confirmed Vital Signs Heart Rate 79 /min 11/22/2024 Temperature 97.2 degrees Fahrenheit 11/22/2024 Respiratory Rate 20 /min 11/22/2024 Height-cm 167.64 cm 11/22/2024 Oximetry 96 % 11/22/2024 Blood pressure diastolic 78 mm Hg 11/22/2024 Weight-kg 86.18 kg 11/22/2024 Height 66 in 11/22/2024 Blood pressure systolic 140 mm Hg 11/22/2024 Weight 190 lbs 11/22/2024 BMI 30.66 kg/m2 11/22/2024 Encounters Encounter Location Date Provider Diagnosis [facility] [address] [facility] [address] [place] [phone] 11/15/2024 Benson Landa Lymphedema, not elsewhere classified I89.0 and Chronic venous hypertension (idiopathic) with ulcer of left lower extremity I87.312 [facility] [address] [facility] [address] [address] 11/22/2024 Benson Landa Lymphedema, not elsewhere classified I89.0 and Chronic venous hypertension (idiopathic) with ulcer of left lower extremity I87.312 [facility] [address] [facility] [address] [phone] 11/07/2024 Benson Landa [facility] [address] [facility] [address] [phone] 11/17/2024 Benson Landa Assessments Encounter Date Diagnosis (ICD Code) Assessment Notes Treatment Notes Treatment Clinical Notes Section Notes 11/15/2024 Chronic venous hypertension (idiopathic) with ulcer of left lower extremity (ICD-10 - I87.312) 11/15/2024 Lymphedema, not elsewhere classified (ICD-10 - I89.0) 11/22/2024 Lymphedema, not elsewhere classified (ICD-10 - I89.0) 11/22/2024 Chronic venous hypertension (idiopathic) with ulcer of left lower extremity (ICD-10 - I87.312) 11/15/2024 Other Today Della is noted to be afebrile, and all other vital signs are noted to be in normal limits for this patient. Nursing removed there dressing(s), and I examined there wound(s), to left posterior lower leg, with no overt underlying s/s of infectious property noted, and no foul odor. 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 The wound bed is noted with granular tissue and periwound is noted with fibrinous rim. The wound is oval I reviewed debridement and rational, informed consent, risks, and benefits explained, and they were agreeable to the procedure. I then procedure with debridement to removed devitalized tissue as outline above. They tolerated the procedure well. I cleansed there wound with Dakin's, then rinsed with saline, thereafter nursing applied Xeroform to the wound bed, zinc to the periwound, followed by a dry-clean dressing. Continue with the above dressing orders daily, will provide dressing changes continue with your scheduled FU wound care appointment and call with any questions or concerns Inability to lift fold of skin at base of 2nd toe which is a positive Stemmer sign and thickened and fibrotic subcutaneous tissue, and lipodermatosclerosis noted to bilaterally lower extremities, consistent with lymphedema diagnosis. They were instructed to elevate ankles to heart level when sitting to keep control of leg edema. If they have pain to the leg, they will elevate. If elevation does not relieve pain in 1 hr, they need to be evaluated. Call us or PCP or seek urgent care. They understand and agree with plan and all questions were answered to their satisfaction. WITH COMPRESSION: double tubi They were instructed to elevate ankles to heart level when sitting to keep control of leg edema. If they have pain to the leg, they will elevate. If elevation does not relieve pain in 1 hr, they need to be evaluated. Call us or PCP or seek urgent care. They understand and agree with plan and all questions were answered to their satisfaction. Discussed red flag signs and symptoms of worsening wound, and underlying infection, when to call the office, and when to seek higher level of care patient verbalized understanding regarding plan of care and all questions answered. Reviewed with patient that due to her not being able to get into bed, or sleep on the sofa, an electric recliner to aid with assisting her out of the chair and allowing her to sleep and elevate legs would benefit her. She reports she will go to [employer] to order one. she will benefit from lymphedema pumps for prevention and to aid with wound healing as well She will have FU next week I, Benson Landa, MSN, EXPERIENCED TRUCK DRIVER, SUPERVISOR FUR DRESSING-C, examined, evaluated, and treated the patient. Dr. Vera Barksdale was available for any questions or concerns that I may have had. A total of 30 minutes was spent on this visit (face to face and non face to face) documenting HPI and performing physical exam, reviewing previous notes and testing, reviewing and adjusting treatment plan, counseling the patient on treatment choices, disease process, expected outcomes, and documenting the findings in the note. 11/22/2024 Other Today Della is afebrile, and all other vital signs are in normal limits for this patient. Nursing removed there dressing(s), and I examined there wound(s), to left posterior lower leg, with no overt underlying s/s of infectious property noted, and no foul odor. Her wound has resolved today to her left posterior lower leg as evident by 100% epithelialization. Educated to continue with leg elevation and anel wraps to aid with edema. Continue to look for chair that will aid with reclining/lifting you out of chair/ so you can sleep in at night due to not being able to get in and out of bed and or sofa and current chairs in house. They understand and agree with plan and all questions were answered to their satisfaction. WITH COMPRESSION: double tubi They were instructed to elevate ankles to heart level when sitting to keep control of leg edema. If they have pain to the leg, they will elevate. If elevation does not relieve pain in 1 hr, they need to be evaluated. Call us or PCP or seek urgent care. They understand and agree with plan and all questions were answered to their satisfaction. patient verbalized understanding regarding plan of care and all questions answered. Reviewed with patient that due to her not being able to get into bed, or sleep on the sofa, an electric recliner to aid with assisting her out of the chair and allowing her to sleep and elevate legs would benefit her. She reports she will go to [employer] to order one. however today she now reports she did not get one because she sleeps in her kitchen and there is not enough room for one Patient with bilateral lower extremity (BLE) lymphedema, experiencing ulcerations that open and close, hyperpigmentation, and pain that has not improved despite compliance with compression, elevation, and exercise for over four weeks. I recommend the [employer] (NPCD) [employer] due to its superiority over pneumatic compression devices (PCD) -evidence-based decision-making I, Benson Landa, MSN, EXPERIENCED TRUCK DRIVER, SUPERVISOR FUR DRESSING-C, examined, evaluated, and treated the patient. Dr. Vera Barksdale was available for any questions or concerns that I may have had. A total of 31 minutes was spent on this visit (face to face and non face to face) documenting HPI and performing physical exam, reviewing previous notes and testing, reviewing and adjusting treatment plan, counseling the patient on treatment choices, disease process, expected outcomes, and documenting the findings in the note. Plan Of Treatment No Information Insurance Providers Payer Name Payer Address Payer Phone Subscriber Number Group Number Insured Name Patient Relationship to Insured Coverage Start Date Coverage End Date Medicare [address] [place] [id number] Della Saravia Self - patient is the insured 7 [facility] [address] [place], [place] [id number] Choco Saravia Spouse - patient is the spouse of the insured 5 Medical (General) History Medical History History ICD Code Arthritis M19.90 Kidney stones N20.0 Edema R60.9 Urinary incontinence R32 Obesity E66.9 Hypercholesterolemia E78.00 Hypothyroid E03.9 Thyroid nodule E04.1 Surgical History Surgery Date(Month/Year) hysterectomy tonsillectomy and adenoidectomy
--- OUTSIDE RECORDS SUMMARY | 2025-01-11 21:45 | XMS_ITS | Clinical Summary ---
Author Organization [facility] Address [address] [facility] [address] [place] [phone] Phone Care Team Providers Care Senior Hr Business Partner Name Role Phone Deric Morales MD Primary Care Provider Allergies No known active allergies Medications simvastatin (ZOCOR) 40 MG tablet Take 1 tablet (40 mg total) by mouth daily. 90 tablet 3 8 Active tretinoin (RETIN-A) 0.025 % cream Apply topically nightly. 45 g 8 Active furosemide (LASIX) 20 MG tablet Take 1 tablet (20 mg total) by mouth daily for 3 days. 3 tablet 4 Active Active Problems Problem Noted Date Diagnosed Date Hypothyroidism 11/18/2012 Overview (05/13/2014): Hypothyroidism - post surgery Immunizations Immunization Administration Dates Next Due Influenza, Unspecified Formulation 02/24/2005 Social History Tobacco Use Types Packs/Day Years Used Date Smoking Tobacco: Never Smokeless Tobacco: Never Tobacco Cessation:Counseling Given: Not Answered Alcohol Use Standard Drinks/Week Comments Yes 0 [...] on file Sexual Orientation Not on file Last Filed Vital Signs Vital Sign Reading Time Taken Comments Blood Pressure 136/83 11/12/2023 11:19 PM EDT Pulse 82 11/12/2023 11:19 PM EDT Temperature 36.2 C (97.2 F) 11/12/2023 11:19 PM EDT Respiratory Rate 18 11/12/2023 11:19 PM EDT Oxygen Saturation 98% 11/12/2023 11:19 PM EDT Inhaled Oxygen Concentration - - Weight 86.2 kg (190 lb) 11/12/2023 6:03 PM EDT Height 167.6 cm (5' 6 ) 11/12/2023 6:03 PM EDT Body Mass Index 30.67 11/12/2023 6:03 PM EDT Plan of Treatment Health Maintenance Due Date Last Done Comments Adult Td,Tdap Booster 1950 DEPRESSION SCREENING 1963 HEPATITIS C SCREENING 10/07/1969 COLOGUARD 10/07/1996 FIT TEST 10/07/1996 FOBT 10/07/1996 SIGMOIDOSCOPY 10/07/1996 VIRTUAL COLONOSCOPY 10/07/1996 MAMMOGRAM 02/08/2011 02/08/2009, 07/22/2005 OSTEOPOROSIS SCREENING INITIAL (ONE-TIME) 10/07/2016 10/15/2005 PNEUMOCOCCAL VACCINES (50+ years) (2 of 2 - PCV) 04/13/2018 04/13/2017 COLONOSCOPY 03/06/2019 03/06/2009 COLORECTAL CANCER SCREENING 03/06/2019 ZOSTER VACCINES (2 of 2) 07/23/2020 05/28/2020 LIPID PANEL 12/14/2022 12/14/2017, 11/18/2012 INFLUENZA VACCINE (#1) 2024 0, 04/15/2019, 12/21/2017, Additional history exists COVID-19 VACCINE (3 - 2024- season) 2024 08/03/2020, 07/13/2020 RSV VACCINE (1 - 1-dose 75+ series) 10/07/2026 SMOKING STATUS SCREENING (Once After 26 Yrs) Completed 11/12/2023 HEPATITIS A VACCINES Aged Out No long er eligible based on patient's age to complete this topic HIB VACCINES Aged Out No longer eligi ble based on patient's age to complete this topic MENINGOCOCCAL VACCINES (ACWY) Aged Out No longer eligible based on patient's age to complete this topic MENINGOCOCCAL VACCINES (B) Aged Out N o longer eligible based on patient's age to complete this topic Medical Devices Not on file Procedures Procedure Name Priority Date/Time Associated Diagnosis Comments LIPID PANEL Routine 12/14/2017 4:27 PM EDT Hypercholesterolemi a ENDOSCOPY, COLON 03/06/2009 2:20 PM EST BI MAMMOGRAM SCREENING (BILATERAL) Routine 02/08/2009 10:06 AM EST BD DXA FOREARM Routine 10/15/2005 5:01 PM EDT from Last 3 Months or Most Recently Relevant to Health Maintenance Results * (ABNORMAL) Lipid panel (12/14/2017 4:27 PM EDT) HDL 90 35 - 100 mg/dL [facility] CHOLESTEROL 241(H) <200 mg/dL [facility] TRIGLYCERIDES 62 40 - 150 mg/dL [facility] LDL 139(H) 50 - 129 mg/dL [facility] CARDIAC RISK RATIO 2.7 0.0 - 5.0 [facility] NON-HDL CHOLESTEROL 151 mg/dL [facility] Comment:NCEP ATP III guideli mino suggest a non-HDL cholesterol goal 30 mg/dl higher than the patient-specific LDL goal. 12/14/2017 4:27 PM EDT 12/14/2017 8:14 PM EDT us Raisa Clement MD LAB BLOOD ORDERABLES Final Res ult [address] [address] * ENDOSCOPY, COLON (03/06/2009 2:20 PM EST) 03/06/2009 2:20 PM EST Narrative 03/06/2009 2:41 PM EST Report Number: [id number] Report Status: Final Type: Colonoscopy Date: 03/06/2009 14:20 [facility] [phone] Patient Name: Della Gusman Gender: F Exam Date: 03/06/2009 02:20 PM Procedure: Colonoscopy Indications: High risk colon ca screening: Colon cancer in mother Providers: Ben Chang MD, Anurag Howell RN Referring MD: Raisa Clement MD Medicines: Midazolam 6 mg IV, Meperidine 80 mg IV Complications: No immediate complications Procedure: - Prior to the procedure, a History and Physical was performed, and patient medication allergies have been reviewed. The patient's tolerance of previous anesthesia has been reviewed. - ASA Grade Assessment: P2 A patient with mild systemic disease. - This evaluation, including a review of the patient's medications was performed by the endoscopist immediately prior to the procedure (see attached H&P document). After obtaining informed consent, the endoscope was passed under direct vision. Throughout the procedure, the patient's blood pressure, pulse, and oxygen saturations were monitored continuously. The Colonoscope was introduced through the anus and advanced to the the cecum, identified by appendiceal orifice & IC valve. The quality of the prep was adequate. Findings: Internal, small hemorrhoids were found during perianal exam. The entire examined colon appeared normal. Impression: - Internal small hemorrhoids were found. - The colon is normal. Recommendation: - Repeat colonoscopy in 5 years for screening purposes. Ben Chang MD, [id number] Signed Date: 03/06/2009 02:40:53 PM Number of Addenda: 0 The attending physician was present throughout the entire procedure Note initiated on 03/06/2009 02:19:40 PM Procedure Note Ben Chang MD - 03/06/2009 2:20 PM EST Report Number: [id number] Report Status:Final Type: Colonoscopy Date: 03/06/2009 14:20 [facility] Unit [phone] Patient Name: Della Gusman Gender: F Exam Date: 03/06/2009 02:20 PM Procedure: Colonoscopy Indications: High risk colon ca screening: Colon cancer in mother Providers: Ben Chang MD, Anurag Howell, RN Referring MD: Raisa Clement MD Medicines: Midazolam 6 mg IV, Meperidine 80 mg IV Complications: No immediate complications Procedure: - Prior to the procedure, a History and Physical was performed, and patient medication allergies have been reviewed. The patient's tolerance of previous anesthesia has been reviewed. - ASA Grade Assessment: P2 A patient with mild systemic disease. - This evaluation, including a review of the patient's medications was performed by the endoscopist immediately prior to the procedure (see attached H&P document). After obtaining informed consent, the endoscope was passed under direct vision. Throughout the procedure, the patient's blood pressure, pulse, and oxygen saturations were monitored continuously. The Colonoscope was introduced through the anus and advanced to the the cecum, identified by appendiceal orifice & IC valve. The quality of the prep was adequate. Findings: Internal, small hemorrhoids were found during perianal exam. The entire examined colon appeared normal. Impression: - Internal small hemorrhoids were found. - The colon is normal. Recommendation: - Repeat colonoscopy in 5 years for screening purposes. Ben Chang MD, [id number] Signed Date: 03/06/2009 02:40:53 PM Number of Addenda: 0 The attending physician was present throughout the entire procedure Note initiated on 03/06/2009 02:19:40 PM us Raisa Clement MD GI PROCEDURE ORDERABLES Final Result * Mammogram Screening (Bilateral) (02/08/2009 10:06 AM EST) Anatomical Region Laterality Modality Breast Left, Breast Right, Breast Bilateral Bila teral Mammography 02/07/2009 7:56 PM EST Narrative 02/08/2009 10:06 AM EST Exam Number: [id number] Report Status: Final Type: Mammo Bilat Dig Screen w CAD Date/Time: 02/07/2009 19:56 Exam Code: ZINA Ordering Provider: RAISA CLEMENT MD REPORT BILATERAL MAMMOGRAM The present study is compared to previous films. Computer-aided detection (R2 ImageChecker 8.3.17) was utilized by the radiologist in the interpretation of this examination. The breast tissues are heterogeneously dense, which could conceivably obscure a lesion. No masses, areas of architectural distortion or suspicious microcalcifications are evident. There are no significant changes from the prior study. IMPRESSION: There is no specific mammographic evidence of malignancy. BI-RADS Category 1 Negative PROVIDERS: SIGNATURES: GABINO GARCIA MD, KATHLEEN A MD Procedure Note Sys, Conversion Provider Not In - 08/10/2014 Exam Number: [id number] Report Status: Final Type: Mammo Bilat Dig Screen w CAD Date/Time: 02/07/2009 19:56 Exam Code: ZINA Ordering Provider: RAISA CLEMENT MD REPORT BILATERAL MAMMOGRAM The present study is compared to previous films. Computer-aided detection (R2 ImageChecker 8.3.17) was utilized by the radiologist in the interpretation of this examination. The breast tissues are heterogeneously dense, which could conceivably obscure a lesion. No masses, areas of architectural distortion or suspicious microcalcifications are evident. There are no significant changes from the prior study. IMPRESSION: There is no specific mammographic evidence of malignancy. BI-RADS Category 1 Negative PROVIDERS: SIGNATURES: GABINO GARCIA MD, KATHLEEN A MD Raisa Clement MD IMG MG EXAMS Final Result * DXA Peripheral (10/15/2005 5:01 PM EDT) Anatomical Region Laterality Modality Bone Density Bone Density 10/15/2005 5:01 PM EDT Narrative 10/15/2005 5:01 PM EDT Exam Number: [id number] Report Status: Final Type: DuelEnPsSpn/Hip Date/Time: 10/15/2005 17:01 Exam Code: DEXA Ordering Provider: RAISA CLEMENT HISTORY: Menopausal [id number] Quantitative Digital Radiography (DXA): BMD of PA Spine * Current scan BMD changes based on average of same-day duplicate scans L1 L2 L3 L4 Date (g/cm2) (g/cm2) (g/cm2) (g/cm2) * 10/15/05 0.91 1.00 1.13 1.10 BMD Change BMD Change BMD T Z Since Prior Since First Date (g/cm2) Score Score Scan (g/cm2) Scan (g/cm2) * 10/15/05 1.05 -0.00 1.00 N/A N/A Interpretation The measurement is technically adequate. Vertebral body (lateral spine) measurements were not possible because of patient anatomy and/or technical factors. Compared to young healthy adult female reference values, bone mass is normal (T-score = -.00) in the spine. Approximately 50% of young healthy [place] adults have a lower BMD in this region; and at this patient's age approximately 84% have a lower BMD in this region (Z-score = 1.00)</NOBR>. Quantitative Digital Radiography (DXA): BMD of Left Hip * Current scan BMD changes based on average of same-day duplicate scans BMD of Total Hip BMD Change BMD Change BMD T Z Since Prior Since First Date (g/cm2) Score Score Scan (g/cm2) Scan (g/cm2) * 10/15/05 0.78 -1.30 -0.70 N/A N/A BMD of Femoral Neck BMD Change BMD Change BMD T Z Since Prior Since First Date (g/cm2) Score Score Scan (g/cm2) Scan (g/cm2) * 10/15/05 0.80 -0.40 0.60 N/A N/A Interpretation The measurement is technically adequate. Compared to young healthy adult female reference values, bone mass is normal (T-score = -.40) in the left hip. Approximately 30% of young healthy [place] adults have a lower BMD in this region; and at this patient's age approximately 72% have a lower BMD in this region (Z-score = .60)</NOBR>. Reviewing MD: Cierra Obrien MD Report date: 10/16/2005 Report ID: [id number] Software version: 1.4.0b16 / 4 PROVIDERS: SIGNATURES: CIERRA OBRIEN ERIK N Procedure Note Sys, Conversion Provider Not In - 08/18/2014 Exam Number: [id number] Report Status: Final Type: DuelEnPsSpn/Hip Date/Time: 10/15/2005 17:01 Exam Code: DEXA Ordering Provider: RAISA CLEMENT HISTORY: Menopausal [id number] Quantitative Digital Radiography (DXA): BMD of PA Spine * Current scan BMD changes based on average of same-day duplicate scans L1 L2 L3 L4 Date (g/cm2) (g/cm2) (g/cm2) (g/cm2) * 10/15/05 0.91 1.00 1.13 1.10 BMD Change BMD Change BMD T Z Since Prior Since First Date (g/cm2) Score Score Scan (g/cm2) Scan (g/cm2) * 10/15/05 1.05 -0.00 1.00 N/A N/A Interpretation The measurement is technically adequate. Vertebral body (lateral spine) measurements were not possible because of patient anatomy and/or technical factors. Compared to young healthy adult female reference values, bone mass is normal (T-score = -.00) in the spine. Approximately 50% of young healthy [place] adults have a lower BMD in this region; and at this patient's age approximately 84% have a lower BMD in this region (Z-score = 1.00)</NOBR>. Quantitative Digital Radiography (DXA): BMD of Left Hip * Current scan BMD changes based on average of same-day duplicate scans BMD of Total Hip BMD Change BMD Change BMD T Z Since Prior Since First Date (g/cm2) Score Score Scan (g/cm2) Scan (g/cm2) * 10/15/05 0.78 -1.30 -0.70 N/A N/A BMD of Femoral Neck BMD Change BMD Change BMD T Z Since Prior Since First Date (g/cm2) Score Score Scan (g/cm2) Scan (g/cm2) * 10/15/05 0.80 -0.40 0.60 N/A N/A Interpretation The measurement is technically adequate. Compared to young healthy adult female reference values, bone mass is normal (T-score = -.40) in the left hip. Approximately 30% of young healthy [place] adults have a lower BMD in this region; and at this patient's age approximately 72% have a lower BMD in this region (Z-score = .60)</NOBR>. Reviewing MD: Cierra Obrien MD Report date: 10/16/2005 Report ID: [id number] Software version: 1.4.0b16 / 4 PROVIDERS: SIGNATURES: CIERRA OBRIEN ERIK N Raisa Clement MD IMG BD BONE DENSITY DEXA Final Result from Last 3 Months or Most Recently Relevant to Health Maintenance Insurance [facility] Address: [facility] [id number] [place] [address] MEDICARE PART A & B FOR LIFE MEDICARE SUPPLEMENT [facility] Address: [facility] [id number] [place] [address] MEDICARE PART A & B [facility] FOR LIFE MEDICARE SUPPLEMENT [facility] Address: [facility] [id number] [place] [address] MEDICARE PART A & B [facility] MEDICARE SUPPLEMENT [facility] MEDICARE PART A & B [facility] MEDICARE SUPPLEMENT [facility] MED[facility] PART A & [place] [id number] [facility] MEDICARE SUPPLEMENT [facility] MEDICARE PART A & B FOR LIFE MEDICARE SUPPLEMENT MEDICARE PART A & B FOR LIFE MEDICARE SUPPLEMENT [facility] Address: [address] [place] [address] MEDICARE PART A & B FOR [facility] MEDICARE SUPPLEMENT [facility] MEDICARE PART A & B [facility] MEDICARE SUPPLEMENT Care Teams Senior Hr Business Partner Relationship Specialty Start Date End Date Deric Morales MD [address] [place] [id number] PCP - General Internal Medicine 12/14/17 Additional Source Comments The information contained in this document represents components of the legal health record. It is not the complete legal health record.[facility]
== END 2025-01-11 16:30 | disposition home or self-care (01) ==
LOC: HO.HUSH 15:38
PROVIDERS: PCP Internal Medicine; Visit Provider Urology
DX: N32.81 Overactive bladder (principal); N28.89 Other specified disorders of kidney and ureter; R39.81 Functional urinary incontinence
CPT/HCPCS: 99214; G2211

== ENCOUNTER 2025-01-24 13:38 | Outpatient (AMB) | payer MEDICARE, BC, SELFPAY ==
--- NOTE | 2025-01-24 13:40 | A.OFFPC_ITS ---
Vital Signs 01/24/25 13:43 Height 5 ft 8 in BMI Reason not done Patient refused/unable BP 140/88 H Blood Pressure Location Rt brachial Position Sitting Pulse 96 Pulse Source Pulse Oximeter Temp 97.0 F Temp Source Temporal Artery Scan Pulse Oximetry (%) 96 Oxygen Delivery Method Room Air Intake Visit Reasons: follow up Allergies No Known Allergies Allergy (Verified 01/24/25 13:45) Medication List - Last Reconciled 01/24/25 by Deric Morales MD aspirin (Adult Low Dose Aspirin) 81 mg PO DAILY calcium carbonate 500 mg PO DAILY cholecalciferol (vitamin D3) 50 mcg PO DAILY cinnamon bark (Cinnamon) 500 mg PO DAILY coenzyme Q10 (Co Q-10) 50 mg PO DAILY cranberry fruit 400 mg PO DAILY erythromycin 1 appl ophthalmic-Left DAILY furosemide 20 mg PO DAILY yumiko (Zingiber officinalis) 500 mg PO DAILY glucosamine sulfate (Glucosamine) 500 mg PO DAILY lactobacillus combination no.8 (Adult Probiotic) 3,000 mmu cells PO DAILY multivitamin 1 tab PO DAILY omega-3 fatty acids 1,000 mg PO DAILY plant stanol bernardino (Cholest Off) mg PO [ROLLATOR As directed] simvastatin 10 mg PO DAILY solifenacin (Vesicare) 10 mg PO DAILY Synthroid (levothyroxine) 137 mcg PO QAM NS tramadol 50 mg PO Q6H PRN 7 days triamcinolone acetonide 0.5% 1 appl topical BID 14 days turmeric root extract 500 mg PO DAILY vitamin B complex 1 tab PO DAILY walker As directed Tobacco use date assessed: 01/24/25 Fall risk assessment: No Falls in past year Last assessed Fall Risk: 01/24/25 Dental Screening Dental Screen Date: 01/24/25 Did you have a dental visit in the last 12 months?: No Did you have a dental problem in the last 6 months where you did not have access to dental care?: No Was dental information given to patient?: Patient has [facility] Medical History Hematuria Right shoulder pain Eczema Tick bite Osteoarthritis, knee Urinary incontinence Hypercholesterolemia Obesity (BMI 30-39.9) Hypothyroid Thyroid nodule Surgical History History of thyroid nodule S/P PARTH-BSO (total abdominal hysterectomy and bilateral salpingo-oophorectomy) History of tonsillectomy and adenoidectomy Family History (Updated 01/24/25 @ 14:21 by Deric Morales MD) Father CAD (coronary artery disease) Lung cancer CVD (cardiovascular disease) Mother Pancreatic cancer Maternal Grandmother Leukemia Maternal Grandfather Pancreatic cancer Paternal Grandfather Throat cancer Social History Housing: House Alcohol intake: never Patient Tobacco Use Status: Never used Tobacco e-Cigarette/Vaping Use: Never Used Second Hand Smoke Exposure: No Current occupational status: retired Cognitive needs: Yes (cane) Hearing needs: No Vision needs: Yes (glasses) Questionnaire PHQ-9 Over the last 2 weeks, how often have you been bothered by any of the following problems? 1. Little interest or pleasure in doing things: several days 2. Feeling down, depressed, or hopeless: not at all 3. Trouble falling or staying asleep, or sleeping too much: not at all 4. Feeling tired or having little energy: not at all 5. Poor appetite or overeating: not at all 6. Feeling bad about yourself - or that you are a failure or have let yourself o r your family down: not at all 7. Trouble concentrating on things, such as reading the newspaper or watching television: not at all 8. Moving or speaking so slowly that other people could have noticed. Or the opposite - being so fidgety or restless that you have been moving around a lot more than usual: not at all 9. Thoughts that you would be better off or of hurting yourself in some way: not at all Total score: 1 Source: Developed by Drs. Talat Hernandez, Marilyn Figueroa, Beto Bojorquez and colleagues, with an educational justin from [employer]. Thrive Questionnaire Date Thrive assessed: 06/24/24 I am a: Patient What is your living situation today?: I have a steady place to live Within the past 12 months, did the food you bought not last and you didn't have the money to get more?: Never true Within the past 12 months, did you worry whether your food would run out before you got money to buy more?: Never true Do you have trouble paying for medicines?: No Do you have trouble getting transportation to medical appointments?: No Do you have trouble paying your heating and electricity bill?: No Do you have trouble taking care of your child, family member or friend?: No Do you have trouble with day-to-day activities such as bathing, preparing meals, shopping, managing finances, etc.?: No Are you currently unemployed and looking for a job?: No Are you interested in more education?: No Please select the resources that you would like help with: None Currently or been in a relationship where the following occur: No concerns reported THRIVE Score: 0 AUDIT C Alcohol Use Questionnaire (AUDIT-C) 1. How often do you have a drink containing alcohol?: Never 3. How often do you have six or more drinks on one occasion?: Never Total Score: 0 VANNESSA-7 AMB Questionnaire VANNESSA-7 Date VANNESSA - 7 assessed: 06/24/24 Feeling nervous, anxious, or on edge: 0 = Not at all Not being able to stop or control worryin = Not at all Worrying too much about different things: 0 = Not at all Trouble relaxin = Not at all Being so restless that it is hard to sit still: 0 = Not at all Becoming easily annoyed or irritable: 0 = Not at all Feeling afraid as if something awful might happen: 0 = Not at all Total VANNESSA-7 score (0-4 normal; 5-9 mild; 10-14 moderate; 15-21 severe): 0 Source: Developed by Drs. Talat Hernandez, Marilyn Figueroa, Beto Bojorquez and colleagues, with an educational justin from [employer]. Physical exam (Primary Care) Vital Signs: Last Vital Signs Temp 97.0 F 01/24/25 13:43 Pulse 96 01/24/25 13:43 BP 140/88 H 01/24/25 13:43 Pulse Ox 96 01/24/25 13:43 Oxygen Delivery Method Room Air 01/24/25 13:43 Tobacco/Smoking Status: Tobacco use Status Tobacco use date assessed 01/24/25 01/24/25 13:49 Patient Tobacco Use Status Never used Tobacco 01/24/25 13:41 e-Cigarette/Vaping Use Never Used 01/24/25 13:41 PHQ-9: PHQ-9 Score PHQ-9: Total score 1 01/24/25 14:23 Thrive Assessment: Date of Thrive Assessment Date Thrive assessed 06/24/24 01/24/25 13:41 Currently or been in a relationship where the following occur: No concerns reported Const General: alert; No acute distress Eyes Conjunctivae: conjunctivae normal Resp Auscultation: clear to auscultation bilaterally Cardio Rate: regular rate Rhythm: regular rhythm GI Inspection: Yes normal to inspection Extrem General: Yes normal to inspection and No edema Office Procedures Flu Questionnaire Does the patient have a severe egg allergy?: No Does the patient have severe life threatening allergies?: No Does the patient have a fever or illness today?: No Has the patient ever had Guillain-Turner Syndrome?: No Has the patient ever had any past reaction to a flu shot?: No Immunizations Fluarix (PF) 45 mcg (15 mcg x 3)/0.5 mL IM syringe Performing Provider: Deric Morales MD Performing Location: [facility] [place] [facility] Administered by: Isis Romano CMA on 01/24/25 14:24 Dose Route Admin Location Dispensed Lot Number Expiration Date [place] Fire Control Officer 0.5 mL IM Left Deltoid 0.5 mL [id number] 09/19/25 22995-958-75 [employer] VIS Given Date VIS Provided VIS Publication Date 01/24/25 Single Vaccine 24 Eligibility Eligibility Date Funding Source Not VFC Eligible 01/24/25 Private Tenivac (PF) 5 Lf unit-2 Lf unit/0.5 mL intramuscular syringe Performing Provider: Deric Morales MD Performing Location: [facility] [place] [facility] Administered by: Iiss Romano CMA on 01/24/25 14:24 Dose Route Admin Location Dispensed Lot Number Expiration Date [place] Fire Control Officer 0.5 mL IM Right Deltoid 0.5 mL [id number] 06/21/26 94978-136-13 [employer] Total Dispensed Waste 0.5 mL 0 % VIS Given Date VIS Provided VIS Publication Date 01/24/25 Single Vaccine 20 Eligibility Eligibility Date Funding Source Not VFC Eligible 01/24/25 Private Coding Level of Care Code Est Pt Level 4 (30045) Complex EM visit Add On G2211 Diagnoses Venous stasis dermatitis I87.2 Hypercholesterolemia E78.00 Impaired fasting blood sugar R73.01 Acquired hypothyroidism E03.9 Hypothyroidism type: acquired Obesity (BMI 30-39.9) E66.9 OAB (overactive bladder) N32.81 Generalized anxiety disorder F41.1 Left renal stone N20.0 Hiatal hernia K44.9 Left lower lobe pulmonary nodule R91.1 Hip osteoarthritis M16.9 Breast cancer screening by mammogram Z12.31 Colon cancer screening Z12.11 Assessment & Plan Assessment & Plan (1) Venous stasis dermatitis: Code(s): I87.2 - Venous insufficiency (chronic) (peripheral) Category: Medical Plan: When sitting down elevate the legs, exercise, and support stockings (2) Hypercholesterolemia: Code(s): E78.00 - Pure hypercholesterolemia, unspecified Category: Medical Plan: Avoid fried foods, chicken skin, eggs, butter margarine, pastries and meat. Be it pork or beef they have a lot of cholesterol on simvastatin August 2024 last blood work (3) Impaired fasting blood sugar: Code(s): R73.01 - Impaired fasting glucose Category: Medical Plan: Decrease the amount of carbohydrate intake, pasta, bread, rice and potatoes are all sugar and that is aside from all the sweet stuff, remember that fruits are good but they are Sweet also. (4) Hypothyroid: Comment: Thyroidectomy last just general none cancer Code(s): E03.9 - Hypothyroidism, unspecified Category: Medical Qualifiers: Hypothyroidism type: acquired Qualified Code(s): E03.9 - Hypothyroidism, unspecified Plan: Advised to get/follow-up TSH. Continue with Synthroid (5) Obesity (BMI 30-39.9): Code(s): E66.9 - Obesity, unspecified Category: Medical Plan: Diet and exercise (6) OAB (overactive bladder): Code(s): N32.81 - Overactive bladder Category: Medical Plan: Patient is being followed up by Urology and placed on VESIcare (7) Generalized anxiety disorder: Code(s): F41.1 - Generalized anxiety disorder Category: Medical Plan: Stable (8) Left renal stone: Comment: 8 mm Code(s): N20.0 - Calculus of kidney Category: Medical (9) Hiatal hernia: Comment: moderate CT 07/2024 Code(s): K44.9 - Diaphragmatic hernia without obstruction or gangrene Category: Medical (10) Left lower lobe pulmonary nodule: Comment: 4mm 07/2024 Code(s): R91.1 - Solitary pulmonary nodule Category: Medical (11) Hip osteoarthritis: Code(s): M16.9 - Osteoarthritis of hip, unspecified Category: Medical (12) Breast cancer screening by mammogram: Code(s): Z12.31 - Encounter for screening mammogram for malignant neoplasm of breast Category: Medical (13) Colon cancer screening: Code(s): Z12.11 - Encounter for screening for malignant neoplasm of colon Category: Medical Plan History of Present Illness The patient is a 74-year-old obese female presenting for a follow-up visit. Her medical history includes hypothyroidism, hypercholesterolemia, knee osteoarthritis, peripheral vascular disease, generalized anxiety disorder, impaired glucose tolerance, and overactive bladder. Her last visit was in June 2024. Last blood work in June showed a normal blood count with mild leukopenia, normal platelet count, good electrolytes, and good renal function. Her blood sugar was 88 with a normal hemoglobin A1c, and her LDL cholesterol was 93 on simvastatin. Labs also revealed low vitamin D and a mildly elevated TSH of 5.29. Imaging includes a lower extremity ultrasound in August which showed no evidence of DVT. A CT scan in July revealed a 4 mm left lung nodule, an 8 mm left kidney stone, a moderate-sized hiatal hernia, and severe arthritis of the right hip. For her overactive bladder, the patient follows with urology via telehealth and is prescribed Vesicare, though she states it is not working well as she continues to wet pads. The kidney stone may be the cause of her lower back pain. A wound doctor diagnosed her with stage 3 lymphedema and she was given compression bandages. Regarding her hypothyroidism, the patient reports having had benign thyroid nodules removed over 20 years ago and is on Synthroid. Her hiatal hernia is associated with symptoms of difficulty swallowing and occasional heartburn. The patient has a history of lifelong exposure to secondhand smoke, and her father of lung cancer. Her mother had pancreatic cancer. She has previously declined mammograms and colonoscopies. Health Maintenance The patient will receive an influenza vaccine and a tetanus vaccine today. An order for a mammogram will be placed. A stool-based test kit for colon cancer screening will be sent to her home, as she has no clear family history of colon cancer. Social History - Substance Use: The patient denies ever smoking but reports lifelong exposure to secondhand smoke from her parents and their friends. - Family History: Her father of lung cancer. - Her mother had pancreatic cancer. - Functional Status: The patient experiences significant mobility challenges, finding it hard to get out of chairs and use stairs. - She sleeps in a computer chair because her bed is too high to get into, which has contributed to her developing scoliosis. - Diet: She reports not eating well, consuming a diet high in carbohydrates like bread because her purchases the groceries and she does not go to the store. Review of Systems - Respiratory: Reports having difficulty breathing and a lot of coughing with sputum production. - Gastrointestinal: Reports occasional heartburn and difficulty swallowing, requiring food to be chewed into small bites. - Genitourinary: Reports urinary incontinence requiring pads despite medication. - Musculoskeletal: Reports lower back pain, severe pain in the right hip and knee, difficulty getting out of a chair, and shoulder pain. - Neurological: Reports numbness in both hands, which is worse in the cold. Physical Exam - Vascular: Peripheral pulses in the hands are good. Results - Labs (June 23): Blood count is normal with mild leukopenia and normal platelets. - Electrolytes and renal function are good. - Blood sugar was 88 with normal hemoglobin A1c. - LDL is 93. - Vitamin D is low. - TSH was mildly elevated at 5.29. - Imaging: Lower extremity ultrasound (August) showed no evidence of DVT. - Imaging: CT scan (July) showed an 8 mm left kidney stone, a moderate-sized hiatal hernia, a 4 mm left lung spot, and severe arthritis of the right hip. Plan Patient was informed and verbally consented to the use of an ambient scribe for clinic note documentation during this visit. 1. Left Lung Nodule An incidental 4 mm left lung nodule was found on a CT scan in July. Given the patient's lifelong secondhand smoke exposure and family history of lung cancer, a follow-up non-contrast CT scan will be scheduled in one year to monitor for any changes. 2. Hypothyroidism The patient's TSH was mildly elevated at 5.29 on recent labs. The patient will continue taking Synthroid, and a repeat thyroid test will be ordered to follow up on the TSH level. 3. Osteoarthritis The patient has severe arthritis of the right hip and knee, causing significant pain and mobility issues. She uses tramadol 2-3 times daily for pain, and a prescription for 60 tablets will be sent. A referral for physical therapy has been placed. The patient was advised to consult a [employer] company to identify the specific type of wheelchair she needs before a prescription is written. 4. Left Renal Calculus The patient has an 8 mm stone in her left kidney, which may be contributing to her lower back pain. She will continue to follow up with urology for management. 5. Moderate Hiatal Hernia A moderate-sized hiatal hernia was identified on her CT scan, which is likely causing her symptoms of heartburn and dysphagia. The patient was counseled that weight loss can help improve these symptoms. 6. Lymphedema And Diuretic Use The patient has stage 3 lymphedema and uses a diuretic (furosemide). Due to diuretic use, blood work will be ordered to monitor her kidney function. 7. Overactive Bladder The patient continues to experience urinary incontinence despite being on Vesicare. She will continue to follow up with her urologist via telehealth for this issue. 8. Weight Management The patient is obese. The possibility of using weight loss medication was discussed, but it is contingent on confirming that her prior thyroid surgery for nodules was not for cancer. She was advised to follow up to clarify this history. Discussion Notes I discussed the results of the patient's recent CT scan from July, which incidentally found a 4 mm left lung nodule. Given her significant history of secondhand smoke exposure and paternal history of lung cancer, I recommended a follow-up non-contrast chest CT in one year to monitor for any changes, explaining that a biopsy is not recommended for a lesion of this small size due to the risk of missing it. I also reviewed other CT findings, including a moderate hiatal hernia, which I explained may be causing her difficulty swallowing and heartburn, and that weight loss could improve symptoms. We discussed the 8 mm left kidney stone and its potential link to her back pain, for which she will continue to follow with her urologist. We addressed her mobility issues from severe arthritis. I refilled her tramadol, placed a referral for physical therapy, and advised her to consult with a medical supply company about her specific wheelchair needs before I write a prescription to ensure she gets an appropriate device. I ordered repeat blood work to recheck her TSH, which was previously elevated, and to monitor her kidney function while on a diuretic. For health maintenance, we agreed to proceed with a mammogram, and I ordered a stool-based colon cancer screening test after clarifying her family history. We arranged for her to receive her flu and tetanus immunizations during today's visit. Patient Instructions - Get your scheduled blood work to check your thyroid and kidney function. - You have a request in the system for a follow-up chest CT scan in one year (around July) to check the spot on your lung. - Take tramadol as needed for pain, 2 to 3 times per day. - We have placed a referral for physical therapy to help with your mobility and pain. - You will receive your flu shot and tetanus shot today. - A request has been sent for a mammogram. - A kit for a stool test for colon cancer screening will be mailed to your home. - Find out from a [employer] what specific type of wheelchair you need, and then let us know so we can write the correct prescription. - Try to lose weight, as this will help your hiatal hernia and arthritis symptoms. - Clarify if your past thyroid surgery was for cancer. - Continue following up with your urologist for your bladder issues and kidney stone. Orders: Orders CT chest wo IV con 7 Months R91.1 - Solitary pulmonary nodule Td Immunization Today Z23 - Encounter for immunization PT Evaluation and Treatment Today M16.9 - Osteoarthritis of hip, unspecified Influenza [id number] Immunization Today Z23 - Encounter for immunization Referrals Cologuard Test Z12.11 - Encounter for screening for malignant neoplasm of colon Medications: Changed From tramadol 50 mg PO Q6H 7 days PRN 23 tabs 0RF pain M17.0 - Bilateral oscar ben osteoarthritis of knee To tramadol 50 mg PO Q6H PRN 60 tabs 0RF pain 30 days M17.0 - Bilateral primary osteoarthritis of knee
[2025-01-24 13:43] VITALS: BP 140/88; PULSE 96; TEMP 36.1; O2SAT 96
--- OUTSIDE RECORDS SUMMARY | 2025-01-24 16:41 | XMS_ITS | Encounter Summary ---
Author Organization [facility] Address [address] [facility], [place] [address] [place] [phone] Phone Care Team Providers Care Soft Boarder Name Role Phone Deric Morales MD Primary Care Provider [phone] Reason for Referral * MRI/CAT Scan - Closed Specialty Diagnoses / Procedures Referred By Contac t Referred To Contact Radiology Diagnoses Overactive bladder Other specified disorders of kidney and ureter Urge incontinence Procedures CT Abdomen/Pelvis Son Mayer MD Phone: tel: fax: Referral ID Status Reason Start Date Expiration Date Visits Re quested Visits Authorized [id number] Closed 07/25/2024 07/25/2025 1 1 Encounter Details Date Type Department Care Team (Late st Contact Info) Description 07/25/2024 Transcribe Orders Virtual Department [address] [place], [place] [id number] Son Mayer MD [address] [place] [address] [place] [id number] Overactive bladder (Primary Dx); Other specified disorders [...] incontinence documented in this encounter Care Teams Soft Boarder Relationship Specialty Start Date End Date Po, Deric Roy MD [address] [place] [address] [place] [id number] PCP - General Internal Medicine 12/14/17 documented as of this encounter Additional Source Comments The information contained in this document represents components of the legal health record. It is not the complete legal health record.[facility]
--- OUTSIDE RECORDS SUMMARY | 2025-01-24 16:41 | XMS_ITS | Clinical Summary ---
Author Organization [facility] Address [address] [facility] [address] [place] [address] Phone Care Team Providers Care Assistant Golf Coach Name Role Phone Deric Morales MD Primary Care Provider [phone] Allergies No known active allergies Medications simvastatin [...] EDT) HDL 90 35 - 100 mg/dL [facility] CHOLESTEROL 241(H) <200 mg/dL [facility] TRIGLYCERIDES 62 40 - 150 mg/dL [facility] LDL 139(H) 50 - 129 mg/dL [facility] CARDIAC RISK RATIO 2.7 0.0 - 5.0 [facility] NON-HDL CHOLESTEROL 151 mg/dL [facility] Comment:NCEP ATP III guideli mino suggest a non-HDL cholesterol goal 30 mg/dl higher than the patient-specific LDL goal. 12/14/2017 4:27 PM EDT 12/14/2017 8:14 PM EDT us Raisa Clement MD LAB BLOOD BKR ORDERABLES Final Result [address] [address] * ENDOSCOPY, COLON (03/06/2009 2:20 PM EST) 03/06/2009 2:20 PM EST Narrative 03/06/2009 2:41 PM EST Report Number: [id number] Report Status: Final Type: Colonoscopy Date: 03/06/2009 14:20 [facility] [phone] Patient Name: Della Gusman Gender: F Exam [...] years for screening purposes. Ben Chang MD, [id number] Signed Date: 03/06/2009 02:40:53 PM Number of Addenda: 0 The attending physician was present throughout the entire procedure Note initiated on 03/06/2009 02:19:40 PM Procedure Note Ben Chang MD - 03/06/2009 2:20 PM EST Report Number: [id number] Report Status:Final Type: Colonoscopy Date: 03/06/2009 14:20 [facility] [phone] Patient Name: Della Gusman Gender: F Exam [...] years for screening purposes. Ben Chang MD, [id number] Signed Date: 03/06/2009 02:40:53 PM Number of [...] Narrative 02/08/2009 10:06 AM EST Exam Number: [id number] Report Status: Final Type: Mammo Bilat Dig [...] Provider Not In - 08/10/2014 Exam Number: [id number] Report Status: Final Type: Mammo Bilat Dig [...] Narrative 10/15/2005 5:01 PM EDT Exam Number: [id number] Report Status: Final Type: DuelEnPsSpn/Hip Date/Time: 10/15/2005 17:01 Exam Code: DEXA Ordering Provider: RAISA CLEMENT HISTORY: Menopausal [id number] Quantitative Digital Radiography (DXA): BMD of PA [...] Obrien MD Report date: 10/16/2005 Report ID: [id number] Software version: 1.4.0b16 / 4 PROVIDERS: SIGNATURES: CIERRA OBRIEN ERIK N Procedure Note Sys, Conversion Provider Not In - 08/18/2014 Exam Number: [id number] Report Status: Final Type: DuelEnPsSpn/Hip Date/Time: 10/15/2005 17:01 Exam Code: DEXA Ordering Provider: RAISA CLEMENT HISTORY: Menopausal [id number] Quantitative Digital Radiography (DXA): BMD of PA [...] Obrien MD Report date: 10/16/2005 Report ID: [id number] Software version: 1.4.0b16 / 4 PROVIDERS: SIGNATURES: CIERRA OBRIEN ERIK N Raisa Clement MD IMG BD BONE DENSITY DEXA Final Result from Last 3 Months or Most Recently Relevant to Health Maintenance Insurance [facility] Address: [facility] [id number] [place] [address] MEDICARE PART A & B FOR LIFE MEDICARE SUPPLEMENT [facility] Address: [facility] [address] [place] [address] MEDICARE PART A & B [facility] FOR LIFE MEDICARE SUPPLEMENT [facility] Address[facility] [address] [place] [address] MEDICARE PART A & B [facility] MEDICARE SUPPLEMENT [facility] MEDICARE PART A & B [facility] MEDICARE SUPPLEMENT [facility] MEDICARE PART A & [place] [id number] [facility] MEDICARE SUPPLEMENT [facility] MEDICARE PART A & B FOR LIFE MEDICARE SUPPLEMENT MEDICARE PART A & B FOR LIFE MEDICARE SUPPLEMENT [facility] Address: [address] [place] [address] MEDICARE PART A & B FOR [facility] MEDICARE SUPPLEMENT [facility] MEDICARE PART A & B [facility] MEDICARE SUPPLEMENT Care Teams Assistant Golf Coach Relationship Specialty Start Date End Date Deric Morales MD [address] [place] [address] PCP - General Internal Medicine 12/14/17 Additional Source Comments The information contained in this document represents components of the legal health record. It is not the complete legal health record.[facility]
--- OUTSIDE RECORDS SUMMARY | 2025-01-24 16:41 | XMS_ITS | Encounter Summary ---
Author Organization [facility] Address [address] [place] [address] Phone Care Team Providers Care Rock Crusher Name Role Phone Deric Morales MD Primary Care Provider [phone] Encounter Details Date Type Department Care Team (Late st Contact Info) Description 07/25/2024 Procedure Pass [facility], Ct Scan - [address] [address] Social History Tobacco Use Types Packs/Day Years [...] on filedocumented in this encounter Care Teams Rock Crusher Relationship Specialty Start Date End Date Deric Morales MD [address] [facility] [address] [place] [phone] PCP - General Internal Medicine 12/14/17 documented as of this encounter Additional Source Comments The information contained in this document represents components of the legal health record. It is not the complete legal health record.[facility]
--- OUTSIDE RECORDS SUMMARY | 2025-01-24 16:41 | XMS_ITS | Encounter Summary ---
Author Organization [facility] Address [address] [facility] [address] [place] [address] Phone Care Team Providers Care Log Haul Operator Name Role Phone Deric Morales MD Primary Care Provider [phone] Reason for Referral * Outpatient Procedure - Closed Specialty Diagnoses / Procedures Referred By Contac t Referred To Contact Radiology Diagnoses Other specified soft tissue disorders Procedures US Lower Extremity Veins Duplex Complete (Bilateral) Deric Morales MD Phone: tel: fax: Referral ID Status Reason Start Date Expiration Date Visits Re quested Visits Authorized [id number] Closed 07/20/2024 07/20/2025 1 1 Encounter Details Date Type Department Care Team (Late st Contact Info) Description 07/20/2024 Transcribe Orders Virtual Department [address] [place] [address] Deric Morales MD [address] [place] [address] Other specified soft tissue disorders [...] disorders documented in this encounter Care Teams Log Haul Operator Relationship Specialty Start Date End Date Deric Morales MD [address] [place] [address] [address] [place] [address] PCP - General Internal Medicine 12/14/17 documented as of this encounter Additional Source Comments The information contained in this document represents components of the legal health record. It is not the complete legal health record.[facility]
--- OUTSIDE RECORDS SUMMARY | 2025-01-24 16:41 | XMS_ITS | Patient Health Record ---
Author Organization [facility] Address [address] [place] [address] Care Team Providers Care Inventory Technician Name Role Phone Deric Morales Primary Care Provider Benson Nolasco Unavailable [phone] Allergies No Known Allergies Reason For Referral [...] extremity due to chronic peripheral venous hypertension (109241728974480) Chronic venous hypertension (idiopathic) with ulcer of left lower extremity (I87.312) Active confirmed Problem Lymphedema (495650993) Lymphedema, not elsewhere classified (I89.0) Active confirmed Problem Arthritis (2817363) Arthritis (M19.90) Active c onfirmed Problem Hypercholesterolemia (45292447) Hypercholesterolemia (E78.00) Active confirmed Problem Thyroid nodule (995998519) Thyroid nodule (E04.1) Active confirmed Problem Obesity (859767397) Obesity (E66.9) Active conf irmed Problem Hypothyroid (82297496) Hypothyroid (E03.9) Active confirmed Problem Kidney stone (21509990) Kidney stones (N20.0) Active confirmed Problem Urinary incontinence (272355031) Urinary incontinence (R32) Active confirmed Vital Signs [...] 11/22/2024 Encounters Encounter Location Date Provider Diagnosis [facility] [address] [place] [id number] 11/15/2024 Benson Landa Lymphedema, not elsewhere classified I89.0 and Chronic venous hypertension (idiopathic) with ulcer of left lower extremity I87.312 [facility] [address] [address] 11/22/2024 Benson Landa Lymphedema, not elsewhere classified I89.0 and Chronic venous hypertension (idiopathic) with ulcer of left lower extremity I87.312 [facility] [address] [address] 11/07/2024 Benson Landa [facility] [address] [address] 11/17/2024 Benson Landa Assessments Encounter Date Diagnosis [...] her. She reports she will go to [employer] to order one. she will benefit from lymphedema pumps for prevention and to aid with wound healing as well She will have FU next week I, Benson Landa, MSN, HOIST WORKER, DOUGH CUTTER-C, examined, evaluated, and treated the patient. Dr. [...] her. She reports she will go to [employer] to order one. however today she [...] (PCD) -evidence-based decision-making I, Benson Landa, MSN, HOIST WORKER, DOUGH CUTTER-C, examined, evaluated, and treated the patient. Dr. [...] Date Medicare [address] [place]O [id number] Della Saravia Self - patient is the insured 7 [facility] [address] [place], [place] [id number] Choco Saravia Spouse - patient is the spouse of the insured 5 Medical (General) History Medical History History ICD Code Arthritis M19.90 Kidney stones N20.0 Edema R60.9 Urinary incontinence R32 Obesity E66.9 Hypercholesterolemia E78.00 Hypothyroid E03.9 Thyroid nodule E04.1 Surgical History Surgery Date(Month/Year) hysterectomy tonsillectomy and adenoidectomy
== END 2025-01-24 14:40 | disposition home or self-care (01) ==
LOC: HO.HMCH 13:39
PROVIDERS: PCP Internal Medicine; Visit Provider Internal Medicine
DX: E78.00 Pure hypercholesterolemia, unspecified (principal); R73.01 Impaired fasting glucose; E03.9 Hypothyroidism, unspecified; I87.2 Venous insufficiency (chronic) (peripheral); E66.9 Obesity, unspecified; N32.81 Overactive bladder; F41.1 Generalized anxiety disorder; N20.0 Calculus of kidney; K44.9 Diaphragmatic hernia without obstruction or gangrene; R91.1 Solitary pulmonary nodule; M16.9 Osteoarthritis of hip, unspecified; Z12.31 Encounter for screening mammogram for malignant neoplasm of breast; Z12.11 Encounter for screening for malignant neoplasm of colon; Z23 Encounter for immunization

== ENCOUNTER → 2025-01-24 13:38 | Outpatient (BNVA) | payer MEDICARE, BC, SELFPAY | PROVIDERS: PCP Internal Medicine; Visit Provider Internal Medicine | DX: I87.2 Venous insufficiency (chronic) (peripheral) (principal); E78.00 Pure hypercholesterolemia, unspecified; R73.01 Impaired fasting glucose; E03.9 Hypothyroidism, unspecified; E66.9 Obesity, unspecified; N32.81 Overactive bladder; F41.1 Generalized anxiety disorder; N20.0 Calculus of kidney; K44.9 Diaphragmatic hernia without obstruction or gangrene; R91.1 Solitary pulmonary nodule; Z23 Encounter for immunization; M17.11 Unilateral primary osteoarthritis, right knee; M16.11 Unilateral primary osteoarthritis, right hip | CPT/HCPCS: 90471; 90656; 90714; 99212 ==